=== PATIENT | male | born 1935 | race Caucasian/White ===

== ENCOUNTER 2018-06-03 23:44 | Inpatient (IN) | payer MEDICARE ==
[2018-06-04 00:25] LABS: #Eosinphils 0.2 thou/uL (0.0-0.7); #Lymphocytes 1.9 thou/uL (1.20-3.40); #Monocytes 0.7 thou/uL (0.11-0.59); #Neutrophils 4.3 thou/uL (1.40-6.50); %Basophils 0.6 % (0.0-1.0); %Eosinophils 3.2 % (0.0-10.0); %Lymphocytes 26.6 % (21.0-51.0); %Monocytes 9.2 % (0.0-10.0); %Neutrophils 60.4 % (42.0-75.0); Hemoglobin 13.8 g/dL (14.0-18.0); Mean Corpuscular Hemoglobin 32.6 pg (27.0-31.0); Mean Corpuscular Volume 98.6 fL (78.0-98.0); Platelet Count 186 thou/uL (130-400); RBC Distribution Width 11.8 % (11.5-14.5); Red Blood Cell (RBC) Count 4.25 mill/uL (4.70-6.10); White Blood Cell (WBC) Count 7.1 thou/uL (4.8-10.8)
[2018-06-04 00:28] LABS: INR-International Normal Ratio 2.5
[2018-06-04 00:43] LABS: ALT (SGPT) Less than 7 U/L (8-55); AST (SGOT) 17 U/L (5-34); Albumin 3.9 g/dL (3.4-4.8); Alkaline Phosphatase 59 U/L (40-150); Anion Gap 11 mmol/L (10-20); BUN (Urea Nitrogen) 33 mg/dL (8.4-25.7); Calc. Creatinine Clearance 0 mL/min (70-130); Calcium 9.2 mg/dL (7.8-10.44); Carbon Dioxide 25 mmol/L (23-31); Chloride 107 mmol/L (98-107); Estimated GFR-MDRD 52; Globulin 2.9 g/dL (2.4-3.5); Glucose 111 mg/dL (83-110); Magnesium 2.4 mg/dL (1.6-2.6); Potassium 4.2 mmol/L (3.5-5.1); Protein, Total 6.8 g/dL (5.8-8.1); Sodium 139 mmol/L (136-145)
[2018-06-04 00:46] LABS: CKMB 3.6 ng/mL (0-6.6); Troponin I Less than 0.010 ng/mL (< 0.028)
--- NOTE | 2018-06-04 01:28 | PDOC.FPRHP ---
- History of Present Illness Chief Complaint: Left sided weakness History of Present Illness: Mr Ferreira is an 82yo male with pmh of Parkinson's, A-fib, HTN, HLD, and CHF who presents with acute onset of left sided weakness starting at 7:45pm. Early in the morning around 7am he had similar symptoms where he was not able to rise out of a chair due to mostly left lower leg weakness. He called his son who noted some slurred speech and left sided weakness causing him to tilt to the left. He took him to [facility] to be evaluated in the ED. Per patient and family , all tests came back negative, his weakness and speech improved and he was released home. Later at 7:45pm yesterday he had return of left sided weakness where he was unable to rise from a chair and worsening slurred speech. His daughter drove him to [place] ED. Denies any facial droop, loss of sensation , tingling, numbness, fevers, chill or difficulty swallowing. At baseline he is able to walk around the house without any assistance. ED Course: EKG- normal, CT & CTA showed no acute abnormalities - Allergies/Adverse Reactions Allergies Allergy/AdvReac Type Severity Reaction Status Date / Time No Known Drug Allergies Allergy Verified 06/04/18 03:25 - Home Medications Medication Instructions Recorded Confirmed Type Digoxin [Digox] 125 mcg PO DAILY 12/01/16 06/04/18 History Rasagiline Mesylate [Azilect] 1 mg PO DAILY 12/01/16 06/04/18 History Rivaroxaban [Xarelto] 15 mg PO QPM-WM 12/01/16 06/04/18 History Simvastatin [Zocor] 20 mg PO QPM 12/01/16 06/04/18 History Carbidopa/Levodopa [Sinemet] 25 mg PO TID 06/04/18 06/04/18 History Famotidine [Pepcid] 20 mg PO PRN PRN 06/04/18 06/04/18 History Metoprolol Tartrate [Lopressor] 25 mg PO BID 06/04/18 06/04/18 History Simvastatin [Zocor] 20 mg PO HS 06/04/18 06/04/18 History - History PMHx:CHF, Parkinsons, HLD, HTN, A-fib PSHx: Left eye- macular degeneration FHx: No known hx of Stroke or WI Social: Denies tobacco/alcohol/drug use. Lives with . - Review of Systems General: denies: fever/chills, fatigue Eyes: reports: other (denies SANCHEZ or blurry vision). denies: vision changes ENT: denies: nasal congestion, rhinorrhea Respiratory: denies: cough, shortness of breath Cardiovascular: denies: chest pain, edema Gastrointestinal: denies: nausea, vomiting, diarrhea, abdominal pain Genitourinary: reports: other (no hematuria). denies: dysuria Skin: denies: rashes, lesions Musculoskeletal: denies: pain, swelling Neurological: reports: weakness. denies: numbness - Vital signs BP: 175/110 HR: 72 RR: 16 Tmax: 97.9 Pox: 96% on RA Wt: 79 - Physical Exam Constitutional: NAD, awake, alert and oriented (x3), well developed HEENT: normocephalic and atraumatic, PERRLA, EOMI, TM's clear and intact, grossly normal hearing, MMM, oropharynx clear Neck: trachea midline Heart: no murmurs/rubs/gallops, no edema, other (irregularly irregular rhythm) Lungs: CTAB, no respiratory distress, good air movement Abdomen: soft, non-tender, bowel sounds present Musculoskeletal: normal structure, normal tone, ROM grossly normal Neurological: CN II-XII intact, normal sensation, DTRs 2+, other (Normal heel to engel Strength: 5/5 bilaterally hand dock attendant, arm flexion/extension, hip flexion /extension. 4/5 left plantar flexion/extension. 5/5 right planter flexion/ extension + cogwheel right and left, tremor present Naming and repetition intact ) Skin: no rash/lesions, capillary refill <2 seconds Psychiatric: normal mood and affect, good judgment and insight FMR H&P: Results - Labs Result Diagrams: 06/04/18 00:14 06/04/18 00:14 Lab results: WBC 7.1 thou/uL (4.8-10.8) 06/04/18 00:14 Hgb 13.8 g/dL (14.0-18.0) L 06/04/18 00:14 Hct 41.9 % (42.0-52.0) L 06/04/18 00:14 MCV 98.6 fL (78.0-98.0) H 06/04/18 00:14 Plt Count 186 thou/uL (130-400) 06/04/18 00:14 Neutrophils % 60.4 % (42.0-75.0) 06/04/18 00:14 Sodium 139 mmol/L (136-145) 06/04/18 00:14 Potassium 4.2 mmol/L (3.5-5.1) 06/04/18 00:14 Chloride 107 mmol/L (98-107) 06/04/18 00:14 Carbon Dioxide 25 mmol/L (23-31) 06/04/18 00:14 BUN 33 mg/dL (8.4-25.7) H 06/04/18 00:14 Creatinine 1.31 mg/dL (0.6-1.3) H 06/04/18 00:14 Glucose 111 mg/dL (83-110) H 06/04/18 00:14 Calcium 9.2 mg/dL (7.8-10.44) 06/04/18 00:14 Total Bilirubin 1.0 mg/dL (0.2-1.2) 06/04/18 00:14 AST 17 U/L (5-34) 06/04/18 00:14 ALT Less than 7 U/L (8-55) L 06/04/18 00:14 Alkaline Phosphatase 59 U/L (40-150) 06/04/18 00:14 CK-MB (CK-2) 3.6 ng/mL (0-6.6) 06/04/18 00:14 Serum Total Protein 6.8 g/dL (5.8-8.1) 06/04/18 00:14 Albumin 3.9 g/dL (3.4-4.8) 06/04/18 00:14 - EKG Interpretation EKG: NSR, 68. Normal EKG - Radiology Interpretation CT scan - head Status: report reviewed by me Additional comment: no acute abnormalities FMR H&P: A/P - Problem List (1) Left-sided weakness Current Visit: No Status: Acute Code(s): R53.1 - WEAKNESS (2) RADHA (acute kidney injury) Current Visit: Yes Status: Acute Code(s): N17.9 - ACUTE KIDNEY FAILURE, UNSPECIFIED (3) Atrial fibrillation Current Visit: Yes Status: Chronic Code(s): I48.91 - UNSPECIFIED ATRIAL FIBRILLATION (4) CHF (congestive heart failure) Current Visit: Yes Status: Chronic Code(s): I50.9 - HEART FAILURE, UNSPECIFIED (5) Parkinsonism Current Visit: Yes Status: Chronic Code(s): G20 - PARKINSON'S DISEASE (6) Hypertension Current Visit: Yes Status: Chronic Code(s): I10 - ESSENTIAL (PRIMARY) HYPERTENSION (7) HLD (hyperlipidemia) Current Visit: Yes Status: Chronic Code(s): E78.5 - HYPERLIPIDEMIA, UNSPECIFIED - Plan Mr Ferreira is an 82yo male with pmh of Parkinson's, CHF, HTN, A-fib and HLD presenting with Left sided weakness starting at 7:45pm. 1. Persistent Left sided weakness concern for acute stroke - Will admit to stroke unit for observation - inital CT w/o contrast showed no acute abnormalities - CTA pending, no acute abnormalities, awaiting formal read - Slight but appreciable left lower leg weakness on exam - DDx: TIA vs acute stroke vs UTI vs peripheral nerve problem - Pt presented with similar symptoms in the past with UTI, UA showed trace ketones but no sign of active infection - MRI in AM - Monitor on Tele - [employer] q4h 2. Permissive HTN - Hold Losartan & metoprolol until MRI and until at least 1945 tomorrow, which is 24hrs from presentation of current symptoms 3. A-fib, stable and rate controlled - Continue Xarelto - Hold Metoprolol - Monitor on Tele 4. CHF - Hold metoprolol - Continue digoxin - Consider increasing digoxin dose, currently subtherapeutic 5. Parkinson's - Continue home meds sinemet & Azilect 6. HLD - Continue home Simvastatin 7. RADHA - Cr 1.31 - Continue to monitor PPX: Home Xarelto, no GI ppx indicated at this time. FMR H&P: Upper Level - Plan Date/Time: 06/04/18 [id number] I, Tammie Fuentes MD, PGY-3, have evaluated this patient and agree with findings/ plan as outlined by international logistics coordinator resident. Pertinent changes/additions have been discussed and are reflected above. Attending Addendum - Attending Addendum Date/Time: 06/04/18 [id number] I personally evaluated the patient and discussed the management with Dr. Larkin. I agree with the History, Examination, Assessment and Plan documented above with any addition or exceptions noted below. The patient presents with acute onset of left-sided weakness. He had similar symptoms earlier in the day, was checked in an outside ER and sent home after symptoms had resolved. In the ER CT of the head showed no acute findings. He is admitted for TIA vs. CVA workup. This morning left sided weakness is improved. MRI of the brain shows an acute infarct. Will consult stroke team. Checking carotid doppler and echo. Digoxin is subtherapeutic, will adjust. Allowing for permissive hypertension but otherwise continuing home meds.
[2018-06-04] MEDS ORDERED: Ondansetron ODT 4 MG TAB SL PRN (03:07)
[2018-06-04] MEDS ORDERED: Ondansetron HCl/PF 4 MG/2 ML Vial IVP PRN (03:07)
[2018-06-04 03:14] VITALS: BMI 25.8
[2018-06-04 03:45] LABS: Troponin I Less than 0.010 ng/mL (< 0.028)
[2018-06-04] MEDS ORDERED: Famotidine 20 MG TAB PO PRN (07:00)
[2018-06-04 07:26] LABS: Hemoglobin A1c 5.9 % (4.0-6.0)
[2018-06-04 07:42] LABS: Cardiac Risk 3.4 (Less than 4.5)
[2018-06-04 08:25] LABS: Folate (Folic Acid) 13.7 ng/mL (7.0-31.4)
[2018-06-04] MEDS: Digoxin 0.125 MG TAB PO SCH (08:43)
[2018-06-04] MEDS ORDERED: Aspirin 325 MG TAB PO SCH (09:00)
[2018-06-04] MEDS ORDERED: Carbidopa/Levodopa 25-100 mg Tablet PO SCH (09:00)
--- NOTE | 2018-06-04 11:10 | MRI ---
BRAIN MRI WITHOUT CONTRAST: HISTORY: Transient ischemic attack. Altered mental status. COMPARISON: None. TECHNIQUE: Brain MRI is performed without intravenous Gadolinium administration. Multisequential, multiplanar i maging is performed. FINDINGS: Calvarium has a normal T1 marrow signal intensity. Midline brain parenchymal structures are unremark able. No hemorrhage on the axial gradient echo sequence. Central arterial flow voids are maintained. There is restricted diffusion involving the right residential fee appraiser al capsule, right lentiform nucleus, right johnson radiata. There are T2 and FLAIR hyperintensities associated with the area of restricted diffusion. Additional white matter hyperintensities due to chronic small-vessel ischemic changes are identified. Cortical lyles-white matter differentiation is preserved. No evidence of hydrocephalus. Adequate aeration of the sinuses and mastoid air cells. IMPRESSION: Acute infarct involving the right cerebrum as described above. POS: RASHID
--- NOTE | 2018-06-04 11:44 | MRI ---
MR ANGIOGRAM OF THE [place] OF [place]: HISTORY: Stroke. COMPARISON: None. CORRELATION: CT angiogram of the head 06/04/18. TECHNIQUE: MR angiogram of the [place] was performed in the axial plane utilizing 3D [id number] norm ging. FINDINGS: There is symmetric flow-related signal in the distal cervical and intracranial internal carotid arter ies. Anterior circulation demonstrates appropriate flow-related signal in the A1 and M1 segments. No sign ificant stenosis in the anterior circulation. Posterior circulation demonstrates appropriate flow-related signal in the visualized vertebral and ba silar arteries. Symmetric and appropriate flow-related signal in both T1 segments. IMPRESSION: Unremarkable MR angiogram of the [place]. POS: RASHID
[2018-06-04] MEDS ORDERED: ISOVUE-370 76%-LOCM 1 ML ONE (12:53)
--- NOTE | 2018-06-04 13:42 | PDOC.EVN ---
Event Note - Event Note Event Note: MRI resulted Acute infarct involving the right cerebrum, neurology and stroke team have been consulted. Family and patient have been notified and counseled.
--- NOTE | 2018-06-04 14:37 | CT ---
PRELIMINARY REPORT/[facility]/EMERGENTY AFTER-HOURS PROCEDURE CT Angiography Head With Intravenous Contrast CLINICAL HISTORY: 82 years old, male; Signs and symptoms; Weakness; Patient HX: Patient presents for evaluation of marleny r deficits, arm weakness, leg weakness, left arm weakness, left leg weakness. TECHNIQUE: Axial computed tomographic angiography images of the head with intravenous contrast using CT angiogra phy protocol. MIP reconstructed images were created and reviewed. COMPARISON: No relevant prior studies available. FINDINGS: Right internal carotid artery: No acute findings. Intracranial segment is patent with no significant stenosis. No aneurysm. Right anterior cerebral artery: Unremarkable. No occlusion or significant stenosis. No aneurysm. Right middle cerebral artery: Unremarkable. No occlusion or significant stenosis. No aneurysm. Right posterior cerebral artery: Unremarkable. No occlusion or significant stenosis. No aneurysm. Right vertebral artery: Unremarkable as visualized. Left internal carotid artery: No acute findings. Intracranial segment is patent with no significant s tenosis. No aneurysm. Left anterior cerebral artery: Unremarkable. No occlusion or significant stenosis. No aneurysm. Left middle cerebral artery: Unremarkable. No occlusion or significant stenosis. No aneurysm. Left posterior cerebral artery: Unremarkable. No occlusion or significant stenosis. No aneurysm. Left vertebral artery: Unremarkable as visualized. Basilar artery: Unremarkable. No occlusion or significant stenosis. No aneurysm. Dental: Metallic dental implants create significant artifact, limiting portions of this study. IMPRESSION: Metallic dental implants create significant artifact, limiting portions of this study. No occlusion o r significant stenosis. No aneurysm. Thank you for allowing us to participate in the care of your patient. Dictated and Authenticated by: Marzena Travis MD 06/04/2018 2:25 AM Central Time ([place] & [place]) FINAL REPORT CT [facility] OF [facility]: HISTORY: Stroke. Motor deficit. Arm and leg weakness. COMPARISON: None. TECHNIQUE: CT angiogram of the [place] is performed in the axial plane. Three-dimensional reformatted images are submitted for interpretation. FINDINGS: This report is in agreement with the preliminary report by [facility]. No evidence of vascular occlusion or aneurysm. POS: [facility]
[2018-06-04] MEDS ORDERED: [UNRECOGNIZED DRUG - REMARK] IVPB PRN (15:26)
[2018-06-04] MEDS: Carbidopa/Levodopa 25-100 mg Tablet PO SCH ×2 (15:46→20:24)
[2018-06-04] MEDS: Rivaroxaban 15 MG TAB PO SCH (15:48)
--- NOTE | 2018-06-04 16:51 | ULT ---
CAROTID ULTRASOUND WITH RHODES SCALE AND DOPPLER DUPLEX COLOR FLOW IMAGING SPECTRAL ANALYSIS PERFORMED: DATE: 06/04/18 CLINICAL INDICATION: TIA. FINDINGS: There is scattered mild to moderate atherosclerotic calcification of the carotid arteries. PEAK SYSTOLIC VELOCITY (CM/S): Right CCA 103 Left CCA 102 Right ICA 98 Left ICA 74 There is antegrade flow within the visualized bilateral vertebral arteries. IMPRESSION: 1. No hemodynamically significant stenosis of the right internal carotid artery. 2. No hemodynamically significant stenosis of the left internal carotid artery. POS: RASHID
[2018-06-04] MEDS: Docusate Sodium 100 MG/10 ML UDCUP PO SCH (20:24)
[2018-06-04] MEDS ORDERED: Atorvastatin Calcium 10 MG TAB PO SCH (21:00)
[2018-06-04] MEDS ORDERED: Atorvastatin Calcium 40 MG TAB PO SCH (21:00)
[2018-06-04 21:15] LABS: Hemoglobin 13.1 g/dL (14.0-18.0); Platelet Count 174 thou/uL (130-400)
--- NOTE | 2018-06-04 21:33 | CON ---
DATE OF CONSULTATION: 06/04/2018 CHIEF COMPLAINT: Here for cerebrovascular accident. HISTORY OF PRESENT ILLNESS: Daughter was in the room and she was able to provide some medical history. The patient has had history of Parkinson disease , hypertension, atrial fibrillation, hyperlipidemia, and congestive heart failure. He is 82 years old and he has been under care of Dr. Silver at [facility]. He presents to the hospital with acute onset left-sided weakness yesterday night and he had similar symptoms early hours of yesterday as well and he had slurred speech. He went to [facility] and his workup was negative and his speech improved yesterday morning and he was sent home and again later on he was brought to this hospital. He had been having difficulty with his left leg when he got up to walk. Normally he is able to walk and is independent other than his Parkinson's disease and he looks off to his and has been even monitoring her blood pressure. He has not been checking his blood pressure recently per daughter. MEDICATIONS AT HOME: Include digoxin, rasagiline, Xarelto, simvastatin, carbidopa/levodopa 25/100 three times daily, Pepcid 20 mg as needed, metoprolol 25 mg b.i.d., simvastatin 20 mg at night. CURRENT MEDICATIONS HERE AT THE HOSPITAL: Include the same plus docusate and Pepcid and he was given one dose of aspirin here. FAMILY HISTORY: Positive for stroke in his father. PAST MEDICAL HISTORY: Positive for congestive heart failure, atrial fibrillation, Parkinson disease, hypertension, hyperlipidemia. The patient does not have a fitter armament according to his daughter. PAST SURGICAL HISTORY: He has not had any surgeries according to his daughter. SOCIAL HISTORY: Lives with his . Does not smoke or drink and is fairly independent. REVIEW OF SYSTEMS: Pulmonary: Negative for any shortness of breath or cough. Genitourinary: Negative for any dysuria or hematuria or other issues. Cardiovascular: No chest pain, but positive for irregular heart rate. Dermatologic: Negative for rash or skin lesions. Neurological: Positive for Parkinson disease and new onset left leg weakness. ENT: Negative for any nasal problems, but positive for hearing loss. Ophthalmologic: Negative for any new onset vision changes. LABORATORY DATA AND IMAGING: Current lab workup shows white count 7.1, hemoglobin 13.8, hematocrit 41.9, platelets 186. Sodium 139, potassium 4.2, chloride 107, bicarbonate 25, anion gap 11, BUN 33, creatinine 1.31, and hemoglobin A1c is 5.9, triglycerides 128, cholesterol 164, LDL 87, HDL 48, Vitamin B12 of 487 and folate 13.7. PTT 27, INR 2.5. CT angio of the brain was negative for any occlusion, or aneurysm. He has metallic dental implants creating artifact. He has had an MRI of the brain which again shows an acute infarct in the right cerebrum primarily in the johnson radiata, right external capsule and right lentiform nucleus and also other white matter changes with restricted diffusion in T2 flair images due to chronic microvascular ischemic changes and an MRI angiogram was also completed which showed negative MR angiogram of [place] and carotid Doppler study shows no hemodynamically significant stenosis of right ICA or left ICA. PHYSICAL EXAMINATION: VITAL SIGNS: Blood pressure 193/81, temperature 98.1, pulse 89, respiratory rate 18, O2 sats 95. GENERAL APPEARANCE: Well-built, well-nourished man, who seems to have hypomimia , hypophonia and tremor due to Parkinson disease, mostly action tremor was noted. CHEST: Clear vesicular breathing. CARDIOVASCULAR: S1, S2 heard. He has a systolic murmur in the aortic area as well as the mitral area and no radiation to carotid arteries. Carotids are clear. ABDOMEN: Soft, nontender, no organomegaly noted. NEUROLOGIC: Higher intellectual functions. He seems to be somewhat confused and does not remember the date or day or year. He knows the month is May and he is oriented to place and person and does follow commands. Cranial nerves: Normal extraocular movements. Normal pupillary reaction bilaterally. He has a left facial droop and normal sensation of face bilaterally. Normal hearing to finger rub bilaterally. Normal elevation of palate. Tongue midline. Motor: Bulk normal. Tone was increased in upper and lower extremities due to Parkinson 's and strength is 5/5 in both upper extremities in deltoid, biceps, triceps, wrist extension and flexion, finger extension and flexion, and left lower extremity iliopsoas was 4/5 and quadriceps 4/5, wrist was 5/5 in bilateral hamstrings, ankle dorsiflexion and plantarflexion and deep tendon reflexes were 1+ throughout. Sensory: Normal touch, pinprick, proprioception, vibration and temperature. Cerebellar: Normal finger to nose, heel to engel. Gait not tested. IMPRESSION: The patient is an 82-year-old man with a history of acute stroke resulting in left side, left lower extremity weakness in the setting of Parkinson disease. He already has atrial fibrillation and is on Xarelto. INR is at 2.5. His infarct involves the right external capsule, right lentiform nucleus and right johnson radiata and the absence of any cerebrovascular ischemic disease of the arteries and negative carotid Dopplers. I suspect this is cardioembolic in nature. The patient does not have a fitter armament. His examination shows primarily left lower extremity weakness plus mild encephalopathy. Whether there are other medical issues that are causing encephalopathy needs to be determined. We are waiting on a UA on this patient as well. His diagnosis is consistent with acute cerebrovascular accident, likely cardioembolic etiology. RECOMMENDATIONS: Please continue aspirin with Xarelto and consult Cardiology since patient does not have a fitter armament. He needs echocardiogram and possibly a ELIAN looking into the atrial function. Please call Neurology for further assistance tomorrow. Start physical therapy. MTDD
--- NOTE | 2018-06-05 05:31 | PDOC.FM ---
- Objective Vital Signs & Weight: Vital Signs (12 hours) Temp Pulse Pulse Pulse Resp BP BP 06/05/18 12:00 98.2 F 83 16 06/05/18 08:47 99.3 F 88 12 06/05/18 08:46 88 06/05/18 08:41 88 88 180/91 H 154/98 H 06/05/18 08:05 84 88 171/89 H 184/98 H 06/05/18 08:00 99.3 F 87 12 06/05/18 04:27 98.8 F 77 18 BP Pulse Ox 06/05/18 12:00 118/63 93 L 06/05/18 08:47 94 L 06/05/18 08:46 06/05/18 08:41 06/05/18 08:05 06/05/18 08:00 177/84 H 94 L 06/05/18 04:27 150/86 H 94 L Weight Weight 86.319 kg I&O: 06/04/18 06/05/18 06/06/18 06:59 06:59 06:59 Intake Total 20 Output Total 200 150 Balance -180 -150 Result Diagrams: 06/05/18 11:55 06/05/18 11:48 <Remington Rueda - Last Filed: 06/05/18 14:00> - Subjective Subjective: Mr Ferreira is an 82yo male with pmh of Parkinson's, A-fib, HTN, HLD, and CHF who presents with acute onset of left sided weakness starting at 7:45pm. Found to have had an acute stroke. Today he is much less verbal than he was at admission. Daughter is in the room. He is having urge to urinate but minimal output with very dark urine. Daughter is concerned with his decline in mental status since yesterday morning. - Objective MAR Reviewed: Yes Vital Signs & Weight: Vital Signs (12 hours) Temp Pulse Resp BP BP Pulse Ox 06/05/18 04:27 98.8 F 77 18 150/86 H 94 L 06/05/18 00:17 168/82 H 06/05/18 00:13 98.7 F 85 16 175/91 H 94 L 06/04/18 20:17 97.6 F 78 16 94 L 06/04/18 20:14 97.6 F 78 16 153/72 H 94 L Weight Weight 86.319 kg I&O: 06/03/18 06/04/18 06/05/18 06:59 06:59 06:59 Intake Total 20 Output Total 200 150 Balance -180 -150 Result Diagrams: 06/05/18 13:53 06/05/18 13:53 Radiology Reviewed by me: Yes <Margaret Larkin - Last Filed: 06/06/18 12:37> Phys Exam - Physical Examination Constitutional: NAD HEENT: PERRLA, moist MMs Respiratory: no wheezing, no rales Cardiovascular: RRR, no significant murmur Gastrointestinal: soft, non-tender, positive bowel sounds Musculoskeletal: no edema, pulses present Strength 5/5 hand information systems planner, arm flexion/extension, planter flexion/extension b/ Psychiatric: normal affect Deviation from normal: Obvious decline in mental status since admission <Margaret Larkin - Last Filed: 06/06/18 12:37> Dx/Plan (1) Acute cerebral infarction Code(s): I63.9 - CEREBRAL INFARCTION, UNSPECIFIED Status: Acute (2) Left-sided weakness Code(s): R53.1 - WEAKNESS Status: Acute (3) RADHA (acute kidney injury) Code(s): N17.9 - ACUTE KIDNEY FAILURE, UNSPECIFIED Status: Acute (4) Atrial fibrillation Code(s): I48.91 - UNSPECIFIED ATRIAL FIBRILLATION Status: Chronic (5) CHF (congestive heart failure) Code(s): I50.9 - HEART FAILURE, UNSPECIFIED Status: Chronic (6) Parkinsonism Code(s): G20 - PARKINSON'S DISEASE Status: Chronic (7) Hypertension Code(s): I10 - ESSENTIAL (PRIMARY) HYPERTENSION Status: Chronic (8) HLD (hyperlipidemia) Code(s): E78.5 - HYPERLIPIDEMIA, UNSPECIFIED Status: Chronic (9) Encephalopathy Code(s): G93.40 - ENCEPHALOPATHY, UNSPECIFIED Status: Acute - Plan Plan: Mr Ferreira is an 82yo male with pmh of Parkinson's, CHF, HTN, A-fib and HLD presenting with Left sided weakness starting at 7:45pm. 1. Acute infarct in right Cerebrum - Now inpatient status - Inital CT w/o contrast & CTA showed no acute abnormalities - Slight but appreciable left lower leg weakness on exam, mild encephalopathy - Pt presented with similar symptoms in the past with UTI, UA showed trace ketones but no sign of active infection - MRI: Acute infarct involving right cerebrum (right external capsule, right lentiform nucleus and right johnson radiata) - Neg carotid dopplers - Likely cardioembolic in nature - Monitor on Tele - Neurochecks q4h - Neurology and stroke team on board, appreciate rec's - Cardiology consult, Neuro recommended a ELIAN - Echo 06/04: EF 55-60% with mildly dilated left atrium - PT recommends d/c to rehab unit - Consult case management & rehab screening - Maintenance fluids 125mls/hr 2. HTN - Restart Losartan & metoprolol, now over 24hrs post acute infarct 3. A-fib, stable and rate controlled - Continue Xarelto - Restart Metoprolol - Monitor on Tele - This morning converted back to A-fib with rate in the 150's, now in the 100' s. - INR 2.5 4. CHF - Continue digoxin - Digoxin subtherapeutic - BEERS list criteria for his age recommends not exceeding 0.125 for Digoxin - Restart metoprolol 5. Parkinson's - Continue home meds sinemet & Azilect 6. HLD - Continue Atorvastatin 40 7. RADHA- resolved 8. Encephalopathy - UA was normal on 06/02, unlikely to be due to UTI - likely result of delerium, hx of dementia - CMP to check for electrolyte abnormalities 9. Urinary retention - Ordered bladder scan - Dark urine this morning <1mL - Bladder scan >250mL - Indwelling catheter inserted 06/05 PPX: Home Xarelto, no GI ppx indicated at this time. Code Status: FULL <Margaret Larkin - Last Filed: 06/06/18 12:37> Attending Addendum - Attending Addendum Date/Time: 06/05/18 1400 I personally evaluated the patient and discussed the management with Dr. [] I agree with the History, Examination, Assessment and Plan documented above with any addition or exceptions noted below. <Remington Rueda - Last Filed: 06/05/18 14:00>
[2018-06-05] MEDS: Carbidopa/Levodopa 25-100 mg Tablet PO SCH ×3 (08:46→22:05)
[2018-06-05] MEDS: Digoxin 0.125 MG TAB PO SCH (08:46)
[2018-06-05] MEDS: Docusate Sodium 100 MG/10 ML UDCUP PO SCH ×2 (08:47→22:05)
[2018-06-05 12:04] LABS: #Basophils 0.1 thou/uL (0.0-0.2); #Eosinphils 0.1 thou/uL (0.0-0.7); #Lymphocytes 1.2 thou/uL (1.20-3.40); #Monocytes 0.7 thou/uL (0.11-0.59); #Neutrophils 6.8 thou/uL (1.40-6.50); %Basophils 0.6 % (0.0-1.0); %Eosinophils 1.2 % (0.0-10.0); %Lymphocytes 13.9 % (21.0-51.0); %Monocytes 7.4 % (0.0-10.0); %Neutrophils 76.9 % (42.0-75.0); Hemoglobin 13.5 g/dL (14.0-18.0); Mean Corpuscular Hemoglobin 33.7 pg (27.0-31.0); Mean Corpuscular Volume 96.2 fL (78.0-98.0); Mean Platelet Volume 6.8 fL (7.4-10.4); Platelet Count 175 thou/uL (130-400); RBC Distribution Width 11.7 % (11.5-14.5); Red Blood Cell (RBC) Count 4.02 mill/uL (4.70-6.10); White Blood Cell (WBC) Count 8.8 thou/uL (4.8-10.8)
[2018-06-05 12:38] LABS: ALT (SGPT) Less than 7 U/L (8-55); AST (SGOT) 22 U/L (5-34); Albumin 3.7 g/dL (3.4-4.8); Alkaline Phosphatase 44 U/L (40-150); Anion Gap 12 mmol/L (10-20); BUN (Urea Nitrogen) 24 mg/dL (8.4-25.7); Bilirubin, Total 2.2 mg/dL (0.2-1.2); Calc. Creatinine Clearance 65 mL/min (70-130); Calcium 8.9 mg/dL (7.8-10.44); Carbon Dioxide 21 mmol/L (23-31); Chloride 109 mmol/L (98-107); Estimated GFR-MDRD 67; Globulin 2.6 g/dL (2.4-3.5); Glucose 141 mg/dL (83-110); Protein, Total 6.3 g/dL (5.8-8.1); Sodium 138 mmol/L (136-145)
[2018-06-05] MEDS: Sodium Chloride 0.9% 1,000 ML IV SCH ×2 (13:33→23:05)
[2018-06-05 14:03] LABS: #Eosinphils 0.1 thou/uL (0.0-0.7); #Lymphocytes 1.5 thou/uL (1.20-3.40); #Monocytes 0.7 thou/uL (0.11-0.59); #Neutrophils 6.1 thou/uL (1.40-6.50); %Basophils 0.4 % (0.0-1.0); %Eosinophils 1.7 % (0.0-10.0); %Lymphocytes 18.1 % (21.0-51.0); %Monocytes 8.1 % (0.0-10.0); %Neutrophils 71.7 % (42.0-75.0); Mean Corpuscular HGB CONC 34.6 g/dL (32.0-36.0); Mean Corpuscular Hemoglobin 33.5 pg (27.0-31.0); Mean Corpuscular Volume 96.6 fL (78.0-98.0); Mean Platelet Volume 6.7 fL (7.4-10.4); Platelet Count 186 thou/uL (130-400); RBC Distribution Width 11.6 % (11.5-14.5); Red Blood Cell (RBC) Count 4.19 mill/uL (4.70-6.10); White Blood Cell (WBC) Count 8.6 thou/uL (4.8-10.8)
[2018-06-05 14:08] LABS: INR-International Normal Ratio 1.3; PTT 27.3 SEC (22.9-36.1); Prothrombin Time 16.4 SEC (12.0-14.7)
[2018-06-05 14:16] LABS: ALT (SGPT) Less than 7 U/L (8-55); AST (SGOT) 21 U/L (5-34); Albumin 3.6 g/dL (3.4-4.8); Alkaline Phosphatase 46 U/L (40-150); Anion Gap 12 mmol/L (10-20); BUN (Urea Nitrogen) 24 mg/dL (8.4-25.7); CK (CPK) 192 U/L (30-200); Calc. Creatinine Clearance 61 mL/min (70-130); Calcium 8.8 mg/dL (7.8-10.44); Carbon Dioxide 20 mmol/L (23-31); Chloride 110 mmol/L (98-107); Estimated GFR-MDRD 63; Globulin 2.5 g/dL (2.4-3.5); Glucose 160 mg/dL (83-110); Protein, Total 6.1 g/dL (5.8-8.1); Sodium 138 mmol/L (136-145)
[2018-06-05 14:19] LABS: CKMB 2.6 ng/mL (0-6.6); Troponin I Less than 0.010 ng/mL (< 0.028)
--- NOTE | 2018-06-05 14:39 | PDOC.EVN ---
Event Note - Event Note Event Note: Code alvarez called on patient due to worsening in patient's presentation and concern for change in NIH stroke scale within a period of 2 hours from 4 to 15. Vitals stable Physical exam: Gen: Pt alert and oriented. able to say his name and date of with some dysarthria. Heart: RRR, No MRG. Neuro: CN II-XII intact grossly. 3/5 strength in LLE; 5/5 throughout otherwise. Patient is an 82 yo male with recent history of Acute R. cerebral stroke with change in baseline. Concern for evolution of ischemic stroke vs. hemorrhagic transformation. - stat noncontrast CT ordered which showed no acute intracranial hemorrhage. - discussed case with Dr. Romulo Anthony who recommended continuing current course of risk factor reduction. - continue Xarelto. - continue to monitor.
--- NOTE | 2018-06-05 14:46 | CT ---
CT BRAIN WITHOUT CONTRAST: Comparison: 06-03-18, MRI brain 06-04-18. History: Stroke protocol. Technique: Multiple contiguous axial images were obtained in a CT of the brain without contrast. FINDINGS: There are hypodensities in the right basal ganglion periventricular white matter which correspond to the areas where restricted diffusion is seen on MRI. These are consistent with acute infarctions. No large confluent infarction is seen. There is no evidence of hydrocephalus, intracranial hemorrhage, o r extraaxial fluid collection. The calvarium and overlying soft tissues are unremarkable. The visualized paranasal sinuses and masto id air cells are well aerated. IMPRESSION: Evolving infarctions in the right periventricular white matter and basal ganglia as was seen on MRI b rain. Dr. Larkin notified of the findings at 2:00 p.m. on 06-05-18. POS: [facility]
[2018-06-05] MEDS: Rivaroxaban 15 MG TAB PO SCH (17:04)
[2018-06-05 17:53] LABS: Amphetamine Not Detected (NotDetected); Barbiturates Screen Not Detected (NotDetected); Benzodiazepine Screen Not Detected (NotDetected); Cocaine Metabolite Screen Not Detected (NotDetected); Medtox Control Line Valid? VALID (VALID); Medtox Reader # READER 1; Methadone Not Detected (NotDetected); Methamphetamine Not Detected (NotDetected); Opiate Screen Not Detected (NotDetected); Oxycodone Screen Not Detected (NotDetected); Phencyclidine (PCP) Not Detected (NotDetected); THC/Cannabinoid Screen Not Detected (NotDetected); Tricyclic Screen Not Detected (NotDetected)
--- NOTE | 2018-06-05 21:54 | PRG ---
DATE OF SERVICE: 06/05/2018 SUBJECTIVE: Mr. Ferreira is a pleasant 82-year-old male with history of chronic atrial fibri llation on Xarelto for a long period of time, presented with an acute onset of left-sided weakness. He was slowly recovering and almost came back to his baseline. However, this morning had an episode in which he became weak on his left side as well as had a gaze deviation towards the right side and h emineglect on the left side, which prompted the code green. He ended up having a CT head without con trast which showed no acute intracranial abnormality. Patient currently reports of no significant ch greg since this morning, he continues to feel somewhat weak on his left side. Per , he continues to neglect on his left side and his speech is extremely slurred. PHYSICAL EXAMINATION: VITAL SIGNS: Blood pressure of 177/91, pulse of 89, temperature of 99.6, respirations of 20, O2 sats of 95% on room air. GENERAL: Well-developed, well-nourished male in no apparent distress. RESPIRATORY: Clear to auscultation bilaterally. CARDIOVASCULAR: Regular rate and rhythm. NEUROLOGICAL: Mental status: The patient is awake, alert and oriented x2. Speech and language: Se verely dysarthric speech. Cranial nerves: Pupils are 3 mm and reactive. Visual olmstead are full to threat. He has a right gaze deviation with a left hemineglect. He has a left facial droop. Motor e xam showed normal tone and bulk on both upper and lower extremities. He has 5/5 strength in the left upper extremity and 4+/5 strength in the left lower extremity. LABORATORY DATA: Reviewed, which included CBC, CMP, urine drug screen, which is significant for gluc ose of 160, otherwise unremarkable. IMAGING STUDIES: CT head without contrast done from earlier today was reviewed, which showed area of hypodensity in the right temporal and posterior parietal region. At this time, his symptoms are likely cardioembolic in nature. He had been on Xarelto while he start ed having these symptoms, which suggested that he failed Xarelto therapy. I would recommend switchin g him to either Coumadin or Eliquis for secondary stroke prevention. Continue PT, OT and speech ther apy. Continue supportive care.
[2018-06-05] MEDS: Atorvastatin Calcium 40 MG TAB PO SCH (22:04)
[2018-06-05] MEDS: Metoprolol Tartrate 25 MG TAB PO SCH (22:04)
--- NOTE | 2018-06-06 05:14 | PDOC.FM ---
- Subjective Subjective: Mr Ferreira is an 82yo male with pmh of Parkinson's, CHF, HTN, A-fib and HLD presenting with Left sided weakness starting at 7:45pm. He is stable from yesterday. Patient was not responding during exam but spent time talking with his daughter and answering questions about discharge dispo. - Objective MAR Reviewed: Yes Vital Signs & Weight: Vital Signs (12 hours) Temp Pulse Resp BP Pulse Ox 06/06/18 03:34 98.9 F 79 22 H 143/70 H 94 L 06/05/18 23:43 98.7 F 83 20 117/72 95 06/05/18 20:10 100.2 F H 81 20 142/93 H 92 L 06/05/18 20:00 98.7 F 83 20 92 L Weight Weight 86.319 kg I&O: 06/04/18 06/05/18 06/06/18 06:59 06:59 06:59 Intake Total 20 Output Total 200 150 225 Balance -180 -150 -225 Result Diagrams: 06/05/18 13:53 06/05/18 13:53 <Margaret Larkin - Last Filed: 06/06/18 12:36> - Objective Vital Signs & Weight: Vital Signs (12 hours) Temp Pulse Pulse Pulse Resp BP BP 06/06/18 11:53 76 06/06/18 11:33 96.8 F L 76 16 06/06/18 08:41 71 72 172/90 H 184/89 H 06/06/18 07:34 97.8 F 72 18 06/06/18 03:34 98.9 F 79 22 H BP Pulse Ox 06/06/18 11:53 06/06/18 11:33 182/82 H 95 06/06/18 08:41 06/06/18 07:34 173/84 H 95 06/06/18 03:34 143/70 H 94 L Weight Weight 86.319 kg I&O: 06/05/18 06/06/18 06/07/18 06:59 06:59 06:59 Intake Total 1213 Output Total 150 500 200 Balance -150 713 -200 Result Diagrams: 06/05/18 13:53 06/05/18 13:53 <Willy Mars - Last Filed: 06/06/18 12:47> Phys Exam - Physical Examination Constitutional: NAD HEENT: PERRLA Respiratory: clear to auscultation bilateral Cardiovascular: RRR Gastrointestinal: soft, non-tender, positive bowel sounds Musculoskeletal: no edema, pulses present A&Ox2, Dysarthric speech. Right gaze deviation, left hemineglect. Left facial droop. 5/5 strenght in UE, 3/5 lower left leg Skin: cap refill <2 seconds <Margaret Larkin - Last Filed: 06/06/18 12:36> Dx/Plan (1) Acute cerebral infarction Code(s): I63.9 - CEREBRAL INFARCTION, UNSPECIFIED Status: Acute (2) Left-sided weakness Code(s): R53.1 - WEAKNESS Status: Acute (3) RADHA (acute kidney injury) Code(s): N17.9 - ACUTE KIDNEY FAILURE, UNSPECIFIED Status: Acute (4) Atrial fibrillation Code(s): I48.91 - UNSPECIFIED ATRIAL FIBRILLATION Status: Chronic (5) CHF (congestive heart failure) Code(s): I50.9 - HEART FAILURE, UNSPECIFIED Status: Chronic (6) Parkinsonism Code(s): G20 - PARKINSON'S DISEASE Status: Chronic (7) Hypertension Code(s): I10 - ESSENTIAL (PRIMARY) HYPERTENSION Status: Chronic (8) HLD (hyperlipidemia) Code(s): E78.5 - HYPERLIPIDEMIA, UNSPECIFIED Status: Chronic (9) Encephalopathy Code(s): G93.40 - ENCEPHALOPATHY, UNSPECIFIED Status: Acute - Plan Plan: Mr Ferreira is an 82yo male with pmh of Parkinson's, CHF, HTN, A-fib and HLD presenting with Left sided weakness starting at 7:45pm. 1. Acute infarct in right Cerebrum - Now inpatient status - Inital CT w/o contrast & CTA showed no acute abnormalities - Slight but appreciable left lower leg weakness on exam, mild encephalopathy - Pt presented with similar symptoms in the past with UTI, UA showed trace ketones but no sign of active infection - MRI: Acute infarct involving right cerebrum (right external capsule, right lentiform nucleus and right johnson radiata) - Neg carotid dopplers - Likely cardioembolic in nature - Monitor on Tele - Neurochecks q4h - Neurology and stroke team on board, appreciate rec's - Echo 06/04: EF 55-60% with mildly dilated left atrium - PT/OT recommends d/c to rehab unit, cont PT/OT - Consult case management & rehab screening - Maintenance fluids 125mls/hr - Speech therapy rec [place] thick/Mechanical soft diet - Bayron Costa was called yesterday for worsening patient presentation and change in NIH from 4 to 15 within a few hours, CT showed evolving infarction. - Xarelto changed to Eliquis, stroke was likely embolic in nature and therefore patient failed therapy with Xarelto 2. HTN - Restart Losartan & metoprolol, now over 24hrs post acute infarct 3. A-fib, stable and rate controlled - Continue Metoprolol & Digoxin - Monitor on Tele - 06/05 converted back to A-fib with rate in the 150's, now in the 100's. - Xarelto stopped 06/05 failed therapy, Started Eliquis 06/06 - Adjusted Eliquis dosing 4. CHF - Continue digoxin for rate control - Digoxin subtherapeutic - BEERS list criteria for his age recommends not exceeding 0.125 for Digoxin - Cont Metoprolol 5. Parkinson's - Continue home meds sinemet & Azilect 6. HLD - Continue Atorvastatin 40 7. RADHA- resolved 8. Encephalopathy - UA was normal on 06/02, unlikely to be due to UTI - likely result of delerium, hx of dementia - CMP to check for electrolyte abnormalities 9. Urinary retention - Bladder scan 06/05 >250mL - Indwelling catheter inserted 06/05 <Margaret Larkin - Last Filed: 06/06/18 12:36> Attending Addendum - Attending Addendum Date/Time: 06/06/18 2236 I personally evaluated the patient and discussed the management with Dr. Lakrin and team. I agree with and repeated the History, Examination, Assessment and Plan documented above with any addition or exceptions noted below. Pt following commands and interacting with me this morning. Agree with exam, although unsure if he has hemineglect, techically. Transitioned to appropriate dose of apixaban. Risk factor management. Neuro, PT, SP following. <Willy Mars - Last Filed: 06/06/18 12:47>
[2018-06-06] MEDS: Sodium Chloride 0.9% 1,000 ML IV SCH ×3 (05:56→21:51)
[2018-06-06] MEDS ORDERED: Apixaban 2.5 MG TAB PO SCH ×3 (08:00→12:00)
[2018-06-06] MEDS: Docusate Sodium 100 MG/10 ML UDCUP PO SCH ×2 (11:39→21:52)
[2018-06-06] MEDS: Carbidopa/Levodopa 25-100 mg Tablet PO SCH ×3 (11:50→21:52)
[2018-06-06] MEDS: Digoxin 0.125 MG TAB PO SCH (11:53)
[2018-06-06] MEDS: Metoprolol Tartrate 25 MG TAB PO SCH ×2 (11:55→21:52)
--- NOTE | 2018-06-06 12:51 | EKG ---
Test Reason : Blood Pressure : / mmHG Vent. Rate : 087 BPM Atrial Rate : 394 BPM P-R Int : 000 ms QRS Dur : 082 ms QT Int : 350 ms P-R-T Axes : 000 -19 005 degrees QTc Int : 421 ms Atrial tachycardia with variable A-V block with premature ventricular or aberrantly conducted complex es Nonspecific ST abnormality Abnormal ECG Confirmed by PILAR LEE ([id number]) on 06/06/2018 12:51:03 PM Referred By: DANIKA Confirmed By:PILAR LEE
--- NOTE | 2018-06-06 14:39 | PQF ---
CLINICAL DOCUMENTATION IMPROVEMENT CLARIFICATION FORM: ICD-10 Updated PLEASE DO AN ADDENDUM TO THE PROGRESS NOTE WITH ANY DOCUMENTATION UPDATES OR ADDITIONS AND CARRY THROUGH TO DC SUMMARY. THANK YOU. DATE: 06/06/18 ATTN: Dr. Larkin/ Attending Dr. Mars Please exercise your independent, professional judgment in responding to the clarification form. Clinical indicators are provided on the bottom of this form for your review Please check appropriate box(s): HEART FAILURE: A. TYPE: [ ] Systolic / HFrEF [ x ] Diastolic / HFpEF [ ] Combined Systolic / Diastolic [ ] Other diagnosis [ ] Unable to determine In addition, please specify: Present on Admission (POA): [ x ] Yes [ ] No [ ] Unable to determine For continuity of documentation, please document condition throughout progress notes and discharge summary. Thank You. CLINICAL INDICATORS - SIGNS / SYMPTOMS / LABS H&P: CHF. CHRONIC PN 06/04: ECHO 06/04: EF 55-60% W/ MILDLY DILATED LEFT ATRIUM RISKS: H&P 06/04: PMH PARKINSON'S, A-FIB, HTN, & CHF. TREATMENT: CPOE 06/05: LOPRESSOR 25 MG PO BID Thank you, Amy (This form is maintained as a part of the permanent medical record) 2014 [employer]. All Rights Reserved Amy Jasmine RN, BSN [email or web address] Office: [phone] Diastolic dysfunction, present on admission. Jessica Mars MD. [facility]
[2018-06-06 21:19] LABS: Hemoglobin 12.8 g/dL (14.0-18.0); Platelet Count 179 thou/uL (130-400)
[2018-06-06] MEDS: Apixaban 5 MG TAB PO SCH (21:52)
[2018-06-06] MEDS: Atorvastatin Calcium 40 MG TAB PO SCH (21:52)
[2018-06-07 02:33] LABS: Bacteria/HPF None Seen HPF (None Seen); Crystals/HPF None Seen HPF (Negative); Hyaline Casts/LPF NONE SEEN LPF (0-3 Hyaline); Renal Epithelial None Seen HPF (0-3); Squamous Epithelial 0-3 HPF (0-3); Transitional Epithelial NONE SEEN HPF (0-3); WBC/HPF 0-3 HPF (0-3); Yeast-All Forms None Seen HPF (None Seen)
--- NOTE | 2018-06-07 05:16 | PDOC.FM ---
- Subjective Subjective: Mr Ferreria is an 82yo male with pmh of Parkinson's, CHF, HTN, A-fib and HLD presenting with Left sided weakness starting at 7:45pm. He is stable from yesterday. More interactive today. No new concerns. Unable to obtain ROS due to patient not able to verbally communicate. - Objective MAR Reviewed: Yes Vital Signs & Weight: Vital Signs (12 hours) Temp Pulse Resp BP Pulse Ox 06/07/18 04:21 98 F 69 20 172/79 H 96 06/07/18 00:32 98.2 F 69 20 146/77 H 94 L 06/06/18 20:00 98.2 F 69 20 95 06/06/18 19:35 97.1 F L 86 20 149/82 H 95 Weight Weight 86.319 kg I&O: 06/05/18 06/06/18 06/07/18 06:59 06:59 06:59 Intake Total 1213 Output Total 150 500 200 Balance -150 713 -200 Result Diagrams: 06/06/18 21:01 06/06/18 21:01 <Margaret Larkin - Last Filed: 06/07/18 09:18> - Objective Vital Signs & Weight: Vital Signs (12 hours) Temp Pulse Pulse Resp BP BP Pulse Ox 06/07/18 11:38 96.6 F L 67 24 H 128/67 98 06/07/18 09:17 75 06/07/18 08:59 98.4 F 75 20 99 06/07/18 08:37 79 170/86 H 06/07/18 07:46 98.4 F 75 20 195/92 H 99 06/07/18 04:21 98 F 69 20 172/79 H 96 06/07/18 00:32 98.2 F 69 20 146/77 H 94 L Weight Weight 86.319 kg I&O: 06/06/18 06/07/18 06/08/18 06:59 06:59 06:59 Intake Total 1213 1300 Output Total 500 200 750 Balance 713 -200 550 Result Diagrams: 06/06/18 21:01 06/06/18 21:01 <Willy Mars - Last Filed: 06/07/18 12:12> Phys Exam - Physical Examination Constitutional: NAD HEENT: oral pharynx no lesions Respiratory: clear to auscultation bilateral Cardiovascular: RRR Gastrointestinal: soft, positive bowel sounds Musculoskeletal: no edema, pulses present Deviation from normal: A&O to person and place Skin: cap refill <2 seconds <Margaret Larkin - Last Filed: 06/07/18 09:18> Dx/Plan (1) Acute cerebral infarction Code(s): I63.9 - CEREBRAL INFARCTION, UNSPECIFIED Status: Acute (2) Left-sided weakness Code(s): R53.1 - WEAKNESS Status: Acute (3) RADHA (acute kidney injury) Code(s): N17.9 - ACUTE KIDNEY FAILURE, UNSPECIFIED Status: Acute (4) Atrial fibrillation Code(s): I48.91 - UNSPECIFIED ATRIAL FIBRILLATION Status: Chronic (5) CHF (congestive heart failure) Code(s): I50.9 - HEART FAILURE, UNSPECIFIED Status: Chronic (6) Parkinsonism Code(s): G20 - PARKINSON'S DISEASE Status: Chronic (7) Hypertension Code(s): I10 - ESSENTIAL (PRIMARY) HYPERTENSION Status: Chronic (8) HLD (hyperlipidemia) Code(s): E78.5 - HYPERLIPIDEMIA, UNSPECIFIED Status: Chronic (9) Encephalopathy Code(s): G93.40 - ENCEPHALOPATHY, UNSPECIFIED Status: Acute - Plan Plan: Mr Ferreira is an 82yo male with pmh of Parkinson's, CHF, HTN, A-fib and HLD presenting with Left sided weakness starting at 7:45pm. 1. Acute infarct in right Cerebrum - Inital CT w/o contrast & CTA showed no acute abnormalities - Slight but appreciable left lower leg weakness on exam, mild encephalopathy - Pt presented with similar symptoms in the past with UTI, UA showed trace ketones but no sign of active infection - MRI: Acute infarct involving right cerebrum (right external capsule, right lentiform nucleus and right johnson radiata) - Neg carotid dopplers - Likely cardioembolic in nature - Monitor on Tele - Neurochecks q4h - Neurology and stroke team on board, appreciate rec's - Echo 06/04: EF 55-60% with mildly dilated left atrium - PT/OT recommends d/c to rehab unit, cont PT/OT - CM following for rehab placement - Maintenance fluids 125mls/hr - Speech therapy rec [place] thick/Mechanical soft diet - Code Igor was called 06/05 for worsening patient presentation and change in NIH from 4 to 15 within a few hours, CT showed evolving infarction. - Xarelto changed to Eliquis, stroke was likely embolic in nature and therefore patient failed therapy with Xarelto. Dose was adjusted 06/06 - Risk Factor management, consider restarting Losartan for better BP control, find out from family if this was one of his home meds 2. HTN - Cont metoprolol, now over 24hrs post acute infarct 3. A-fib, stable and rate controlled - Continue Metoprolol & Digoxin - Monitor on Tele - 06/05 converted back to A-fib with rate in the 150's, now in the 100's. - Xarelto stopped 06/05 failed therapy, Started Eliquis 06/06 - Adjusted Eliquis dosing 06/06 4. CHF - Continue digoxin for rate control - Digoxin subtherapeutic - BEERS list criteria for his age recommends not exceeding 0.125 for Digoxin - Cont Metoprolol 5. Parkinson's - Continue home meds sinemet & Azilect 6. HLD - Continue Atorvastatin 40 7. RADHA- resolved 8. Encephalopathy - UA was normal on 06/02, unlikely to be due to UTI - likely result of delerium, hx of dementia - CMP to check for electrolyte abnormalities 9. Urinary retention - Bladder scan 06/05 >250mL - Indwelling catheter inserted 06/05 - UA + for 11-20 RBCs, per nursing he has been tugging at catheter with pink tinged urine afterwards Code Status: FULL DVT ppx: SCDs, on Eliquis GI PPx: none Dispo: SNF once medically stable. CM has sent request to [facility] <Margaret Larkin - Last Filed: 06/07/18 09:18> Attending Addendum - Attending Addendum Date/Time: 06/07/18 1211 I personally evaluated the patient and discussed the management with Dr. Larkin and team. I agree with and repeated the History, Examination, Assessment and Plan documented above with any addition or exceptions noted below. Pt improved today, but still talks little. Neuro exam unchanged. Continue RF management. PT/ST/placement. Will need workup or f/u for elevated bilirubin. Discussed with family at bedside. <Willy Mars - Last Filed: 06/07/18 12:12>
[2018-06-07] MEDS: Sodium Chloride 0.9% 1,000 ML IV SCH ×3 (06:29→22:11)
[2018-06-07] MEDS: Digoxin 0.125 MG TAB PO SCH (09:17)
[2018-06-07] MEDS: Carbidopa/Levodopa 25-100 mg Tablet PO SCH ×3 (09:17→22:10)
[2018-06-07] MEDS: Apixaban 5 MG TAB PO SCH ×2 (09:17→22:10)
[2018-06-07] MEDS: Metoprolol Tartrate 25 MG TAB PO SCH ×2 (09:18→22:11)
[2018-06-07] MEDS: Docusate Sodium 100 MG/10 ML UDCUP PO SCH ×2 (09:19→22:10)
[2018-06-07] MEDS ORDERED: Acetaminophen 500 MG TAB PO PRN (12:56)
[2018-06-07 13:42] LABS: Bilirubin, Direct 0.6 mg/dL (0.1-0.3)
[2018-06-07] MEDS: Atorvastatin Calcium 40 MG TAB PO SCH (22:10)
--- NOTE | 2018-06-08 04:59 | PDOC.FM ---
- Subjective Subjective: Mr Ferreira is an 82yo male with pmh of Parkinson's, CHF, HTN, A-fib and HLD presenting with Left sided weakness starting at 7:45pm. He is stable from yesterday. More interactive today. Denies pain, discomfort, SANCHEZ or abdominal pain. Endorses being depressed and would like to talk to someone about it but would not like pharmacologic management at this time. I placed a ventilator communication chart in his room that he agreed he would like to try using and nursing is aware. - Objective MAR Reviewed: Yes Vital Signs & Weight: Vital Signs (12 hours) Temp Pulse Resp BP Pulse Ox 06/08/18 00:10 98.4 F 65 20 142/76 H 96 06/07/18 20:07 97.2 F L 86 20 180/82 H 96 06/07/18 20:00 98.4 F 65 20 96 Weight Weight 86.319 kg I&O: 06/06/18 06/07/18 06/08/18 06:59 06:59 06:59 Intake Total 1213 1300 Output Total 413 141 3647 Balance 713 -200 -350 Result Diagrams: 06/06/18 21:01 06/06/18 21:01 <Margaret Larkin - Last Filed: 06/08/18 10:38> - Objective Vital Signs & Weight: Vital Signs (12 hours) Temp Pulse Resp BP Pulse Ox 06/08/18 12:00 98.4 F 74 16 183/90 H 96 06/08/18 11:39 69 06/08/18 11:37 69 06/08/18 07:55 98.7 F 69 20 186/94 H 95 06/08/18 03:55 98.1 F 63 20 150/75 H 96 Weight Weight 86.319 kg I&O: 06/07/18 06/08/18 06/09/18 06:59 06:59 06:59 Intake Total 1300 Output Total 200 2550 Balance -200 -1250 Result Diagrams: 06/06/18 21:01 06/06/18 21:01 <Willy Mars - Last Filed: 06/08/18 13:03> Phys Exam - Physical Examination Constitutional: NAD HEENT: sclera anicteric Respiratory: clear to auscultation bilateral Cardiovascular: RRR Gastrointestinal: soft, non-tender, positive bowel sounds No right upper quadrant tenderness Musculoskeletal: no edema, pulses present A&Ox2, Dysarthric speech. Right gaze deviation, left facial droop Left UE & LE weakness Deviation from normal: A&Ox2 unable to access to time Skin: cap refill <2 seconds <Margaret Larkin - Last Filed: 06/08/18 10:38> Dx/Plan (1) Acute cerebral infarction Code(s): I63.9 - CEREBRAL INFARCTION, UNSPECIFIED Status: Acute (2) Left-sided weakness Code(s): R53.1 - WEAKNESS Status: Acute (3) RADHA (acute kidney injury) Code(s): N17.9 - ACUTE KIDNEY FAILURE, UNSPECIFIED Status: Acute (4) Atrial fibrillation Code(s): I48.91 - UNSPECIFIED ATRIAL FIBRILLATION Status: Chronic (5) Hyperbilirubinemia Code(s): E80.6 - OTHER DISORDERS OF BILIRUBIN METABOLISM Status: Acute (6) CHF (congestive heart failure) Code(s): I50.9 - HEART FAILURE, UNSPECIFIED Status: Chronic (7) Parkinsonism Code(s): G20 - PARKINSON'S DISEASE Status: Chronic (8) Hypertension Code(s): I10 - ESSENTIAL (PRIMARY) HYPERTENSION Status: Chronic (9) HLD (hyperlipidemia) Code(s): E78.5 - HYPERLIPIDEMIA, UNSPECIFIED Status: Chronic (10) Encephalopathy Code(s): G93.40 - ENCEPHALOPATHY, UNSPECIFIED Status: Acute - Plan Plan: Mr Ferreira is an 82yo male with pmh of Parkinson's, CHF, HTN, A-fib and HLD presenting with Left sided weakness starting at 7:45pm. 1. Acute infarct in right Cerebrum - Inital CT w/o contrast & CTA showed no acute abnormalities - Slight but appreciable left lower leg weakness on exam, mild encephalopathy - Pt presented with similar symptoms in the past with UTI, UA showed trace ketones but no sign of active infection - MRI: Acute infarct involving right cerebrum (right external capsule, right lentiform nucleus and right johnson radiata) - Neg carotid dopplers - Likely cardioembolic in nature - Monitor on Tele - Neurochecks q4h - Neurology and stroke team on board, appreciate rec's - Echo 06/04: EF 55-60% with mildly dilated left atrium - PT/OT recommends d/c to rehab unit, cont PT/OT - CM following for rehab placement - Maintenance fluids 125mls/hr - Speech therapy rec [place] thick/Mechanical soft diet - Code Igor was called 06/05 for worsening patient presentation and change in NIH from 4 to 15 within a few hours, CT showed evolving infarction. - Xarelto changed to Eliquis, stroke was likely embolic in nature and therefore patient failed therapy with Xarelto. Dose was adjusted 06/06 - Risk Factor management - Continue Amlodipine 10mg (started 06/07) 2. HTN - Cont metoprolol, now over 24hrs post acute infarct - Started Amlodipine 10mg 06/07 - Start Lisinopril 20mg 3. A-fib, stable and rate controlled - Continue Metoprolol & Digoxin - Monitor on Tele - 06/05 converted back to A-fib with rate in the 150's, now in the 100's. - Xarelto stopped 06/05 failed therapy, Started Eliquis 06/06 - Adjusted Eliquis dosing 06/06 4. 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 Depression - Spoke with him about options for management - Would like to talk to a psychologist - Consulted spiritual care 6. CHF - Continue digoxin for rate control - Digoxin subtherapeutic - BEERS list criteria for his age recommends not exceeding 0.125 for Digoxin - Cont Metoprolol 7. Parkinson's - Continue home meds sinemet & Azilect 8. HLD - Continue Atorvastatin 40 9. RADHA- resolved 10. Encephalopathy - UA was normal on 06/02, unlikely to be due to UTI - likely result of delerium, hx of dementia - No electrolyte disturbances 11. Urinary retention - Bladder scan 06/05 >250mL - Indwelling catheter inserted 06/05 - UA + for 11-20 RBCs, per nursing he has been tugging at catheter with pink tinged urine afterwards - Trial catheter removal today Code Status: FULL DVT ppx: SCDs, on Eliquis GI PPx: none Dispo: SNF once medically stable. CM has sent request to [facility] <Margaret Larkin - Last Filed: 06/08/18 10:38> Attending Addendum - Attending Addendum Date/Time: 06/08/18 1302 I personally evaluated the patient and discussed the management with Dr. Larkin and team. I agree with and repeated the History, Examination, Assessment and Plan documented above with any addition or exceptions noted below. Pt doing better this AM. Talking some, but somewhat of an expressive aphasia vs dysarthria. Increasd BP control. Continue RF management and PT. D/c Altagracia for a repeat trial without. Placement pending. <Willy Mars - Last Filed: 06/08/18 13:03>
[2018-06-08] MEDS: Sodium Chloride 0.9% 1,000 ML IV SCH ×2 (07:53→15:05)
--- NOTE | 2018-06-08 09:03 | ULT ---
GALLBLADDER ULTRASOUND: HISTORY: Conjugated hyperbilirubinemia. COMPARISON: None. TECHNIQUE: Utilizing a multihertz transducer, sonographic imaging of the right upper quadrant was performed in t he longitudinal and transverse plane. FINDINGS: Pancreas is obscured by bowel gas. Hepatic parenchyma has a heterogeneous echotexture. No hepatic m asses or intrahepatic biliary dilatation. The contour of the hepatic margin is maintained. Right he patic lobe measures 15.8 cm. Main portal vein is patent. Appropriate directional flow. Common bile duct diameter is 0.4 cm. Limited evaluation of the right kidney. There appear to be 2 separate cortical cysts measuring 1.7 x 1.3 x 1.6 cm and 1.7 x 1.5 x 1.4 cm respectively. No hydronephrosis. The right kidney measures 5.1 x 5.2 x 10.7 cm. No evidence of hydronephrosis. No sonographic evidence of cholelithiasis , gallbladder wall thickening, and or pericholecystic fluid . Negative Eagle's sign. IMPRESSION: 1. No evidence of hydronephrosis. 2. Two right renal cysts are suspected. 3. No sonographic evidence of cholelithiasis or cholecystitis. POS: [facility]
[2018-06-08] MEDS: Carbidopa/Levodopa 25-100 mg Tablet PO SCH ×3 (11:37→20:24)
[2018-06-08] MEDS: Metoprolol Tartrate 25 MG TAB PO SCH ×2 (11:37→20:25)
[2018-06-08] MEDS: Digoxin 0.125 MG TAB PO SCH (11:37)
[2018-06-08] MEDS: Docusate Sodium 100 MG/10 ML UDCUP PO SCH ×2 (11:38→20:25)
[2018-06-08] MEDS: Apixaban 5 MG TAB PO SCH ×2 (11:38→20:24)
[2018-06-08] MEDS: Amlodipine 10 MG TAB PO SCH (11:39)
[2018-06-08] MEDS ORDERED: Labetalol HCl 100 MG/20 ML VIAL SLOW IVP SCH (18:30)
[2018-06-08] MEDS: Atorvastatin Calcium 40 MG TAB PO SCH (20:25)
[2018-06-08 21:35] LABS: Hemoglobin 12.6 g/dL (14.0-18.0); Platelet Count 192 thou/uL (130-400)
[2018-06-09] MEDS: Sodium Chloride 0.9% 1,000 ML IV SCH (00:30)
--- NOTE | 2018-06-09 05:03 | PDOC.FM ---
- Subjective Subjective: Mr Ferreira is an 82yo male with pmh of Parkinson's, CHF, HTN, A-fib and HLD presenting with Left sided weakness starting at 7:45pm. He is stable from yesterday. More interactive today. Denies pain, discomfort, SANCHEZ or abdominal pain. - Objective MAR Reviewed: Yes Vital Signs & Weight: Vital Signs (12 hours) Temp Pulse Resp BP Pulse Ox 06/09/18 04:00 97.9 F 78 18 180/86 H 96 06/09/18 00:00 97.4 F L 76 18 110/61 95 06/08/18 20:20 97.4 F L 76 18 06/08/18 20:00 97.9 F 66 18 121/61 93 L 06/08/18 18:29 72 Weight Weight 86.183 kg I&O: 06/07/18 06/08/18 06/09/18 06:59 06:59 06:59 Intake Total 1300 Output Total 200 2550 1500 Balance -200 -1250 -1500 Result Diagrams: 06/08/18 21:29 06/08/18 21:29 <Margaret Larkin - Last Filed: 06/09/18 11:36> - Objective Vital Signs & Weight: Vital Signs (12 hours) Temp Pulse Pulse Pulse Resp BP BP 06/09/18 15:35 69 70 142/74 H 140/65 06/09/18 15:33 98.6 F 83 14 06/09/18 11:30 98.5 F 75 14 06/09/18 11:16 66 06/09/18 08:05 98.5 F 75 14 06/09/18 07:41 98.4 F 66 14 BP Pulse Ox 06/09/18 15:35 06/09/18 15:33 131/75 93 L 06/09/18 11:30 185/89 H 96 06/09/18 11:16 06/09/18 08:05 97 06/09/18 07:41 179/80 H 97 Weight Weight 86.183 kg I&O: 06/08/18 06/09/18 06/10/18 06:59 06:59 06:59 Intake Total 1300 1725 Output Total 2550 1500 Balance -1250 225 Result Diagrams: 06/08/18 21:29 06/08/18 21:29 <Remington Rueda - Last Filed: 06/09/18 17:05> Phys Exam - Physical Examination Constitutional: NAD Respiratory: no wheezing, clear to auscultation bilateral Cardiovascular: RRR Gastrointestinal: soft, non-tender, positive bowel sounds Musculoskeletal: no edema, pulses present Psychiatric: normal affect Skin: cap refill <2 seconds <Tito Larkinyla - Last Filed: 06/09/18 11:36> Dx/Plan (1) Acute cerebral infarction Code(s): I63.9 - CEREBRAL INFARCTION, UNSPECIFIED Status: Acute (2) Left-sided weakness Code(s): R53.1 - WEAKNESS Status: Acute (3) RADHA (acute kidney injury) Code(s): N17.9 - ACUTE KIDNEY FAILURE, UNSPECIFIED Status: Acute (4) Atrial fibrillation Code(s): I48.91 - UNSPECIFIED ATRIAL FIBRILLATION Status: Chronic (5) Hyperbilirubinemia Code(s): E80.6 - OTHER DISORDERS OF BILIRUBIN METABOLISM Status: Acute (6) CHF (congestive heart failure) Code(s): I50.9 - HEART FAILURE, UNSPECIFIED Status: Chronic (7) Parkinsonism Code(s): G20 - PARKINSON'S DISEASE Status: Chronic (8) Hypertension Code(s): I10 - ESSENTIAL (PRIMARY) HYPERTENSION Status: Chronic (9) HLD (hyperlipidemia) Code(s): E78.5 - HYPERLIPIDEMIA, UNSPECIFIED Status: Chronic (10) Encephalopathy Code(s): G93.40 - ENCEPHALOPATHY, UNSPECIFIED Status: Acute - Plan Plan: Mr Ferreira is an 82yo male with pmh of Parkinson's, CHF, HTN, A-fib and HLD presenting with Left sided weakness starting at 7:45pm. 1. Acute infarct in right Cerebrum - Inital CT w/o contrast & CTA showed no acute abnormalities - Slight but appreciable left lower leg weakness on exam, mild encephalopathy - Pt presented with similar symptoms in the past with UTI, UA showed trace ketones but no sign of active infection - MRI: Acute infarct involving right cerebrum (right external capsule, right lentiform nucleus and right johnson radiata) - Neg carotid dopplers - Likely cardioembolic in nature - Monitor on Tele, Neurochecks q4h - Neurology and stroke team on board, appreciate rec's - Echo 06/04: EF 55-60% with mildly dilated left atrium - PT/OT recommends d/c to rehab unit, cont PT/OT - CM following for rehab placement - Maintenance fluids 125mls/hr - Speech therapy rec [place] thick/Mechanical soft diet - Bayron Costa was called 06/05 for worsening patient presentation and change in NIH from 4 to 15 within a few hours, CT showed evolving infarction. - Xarelto changed to Eliquis, stroke was likely embolic in nature and therefore patient failed therapy with Xarelto. Dose was adjusted 06/06 - Risk Factor management - Continue Amlodipine 10mg (started 06/07) - Continue Lisinopril 20mg for BP control (06/08) 2. HTN - Cont metoprolol, now over 24hrs post acute infarct - Continue Amlodipine 10mg (06/07) & Lisinopril 20mg (06/08) 3. Urinary retention - Bladder scan 06/05 >250mL - Indwelling catheter inserted 06/05 - UA + for 11-20 RBCs, per nursing he has been tugging at catheter with pink tinged urine afterwards - Trial catheter removal 06/08, no post void residuals overnight 4. A-fib, stable and rate controlled - Continue Metoprolol & Digoxin - Monitor on Tele - 06/05 converted back to A-fib with rate in the 150's, now in the 100's. - Xarelto stopped 06/05 failed therapy, Started Eliquis 06/06 5. 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 Depression - Spoke with him about options for management - Consulted spiritual care - Recommended SSRI 7. CHF - Continue digoxin for rate control - Digoxin subtherapeutic - BEERS list criteria for his age recommends not exceeding 0.125 for Digoxin - Cont Metoprolol 8. Parkinson's - Continue home meds sinemet & Azilect 9. HLD - Continue Atorvastatin 40 10. RADHA- resolved 11. Encephalopathy - resolved - UA was normal on 06/02, unlikely to be due to UTI - No electrolyte disturbances Code Status: FULL DVT ppx: SCDs, on Eliquis GI PPx: none Dispo: SNF once medically stable. has sent request to [facility] <Margaret Larkin - Last Filed: 06/09/18 11:36> Attending Addendum - Attending Addendum Date/Time: 06/09/18 1626 I personally evaluated the patient and discussed the management with Dr. Larkin I agree with the History, Examination, Assessment and Plan documented above with any addition or exceptions noted below.Patient Stable BP well controlled heart rate controlled . Consider starting SSRI should be ready for Rehab as placement becomes available. Patient voiding well at present. Patient and family updated to care plan. <Remington Rueda - Last Filed: 06/09/18 17:05>
[2018-06-09] MEDS ORDERED: Lisinopril 20 MG TAB PO SCH (09:00)
[2018-06-09] MEDS: Apixaban 5 MG TAB PO SCH (11:16)
[2018-06-09] MEDS: Carbidopa/Levodopa 25-100 mg Tablet PO SCH ×2 (11:16→17:13)
[2018-06-09] MEDS: Metoprolol Tartrate 25 MG TAB PO SCH (11:16)
[2018-06-09] MEDS: Digoxin 0.125 MG TAB PO SCH (11:16)
[2018-06-09] MEDS: Docusate Sodium 100 MG/10 ML UDCUP PO SCH (11:16)
[2018-06-09] MEDS: Amlodipine 10 MG TAB PO SCH (11:16)
[2018-06-09 15:33] VITALS: TEMP 98.6
[2018-06-09 16:13] VITALS: BP 142/74
== END 2018-06-09 17:38 | DRG 64 ==
LOC: ERS 23:44 → INTOOBSV 06-04 00:58 → 2SE 06-04 00:58 → OBSVTOIN 06-04 00:58
PROVIDERS: ADMIT Family Medicine; ATTEND Family Medicine
DX: I63.40 Cerebral infarction due to embolism of unspecified cerebral artery (principal); G93.49 Other encephalopathy; G81.94 Hemiplegia, unspecified affecting left nondominant side; N17.9 Acute kidney failure, unspecified; I50.32 Chronic diastolic (congestive) heart failure; I63.8 Other cerebral infarction; G20 Parkinson's disease; H35.30 Unspecified macular degeneration; L89.151 Pressure ulcer of sacral region, stage 1; H53.47 Heteronymous bilateral field defects; R47.81 Slurred speech; E80.4 Gilbert syndrome; E78.5 Hyperlipidemia, unspecified; R33.9 Retention of urine, unspecified; R29.704 NIHSS score 4; R29.715 NIHSS score 15; I48.2 Chronic atrial fibrillation; H51.0 Palsy (spasm) of conjugate gaze; I11.0 Hypertensive heart disease with heart failure; R29.810 Facial weakness; R47.01 Aphasia; R27.0 Ataxia, unspecified; Z79.01 Long term (current) use of anticoagulants; Z79.899 Other long term (current) drug therapy
CPT/HCPCS: 36415; 36416; 70450; 70496; 70544; 70551; 76705; 80053; 80061; 80306; 81015; 82247; 82248; 82550; 82553; 82565; 82607; 82746; 83036; 83735; 84484; 85014; 85018; 85025; 85049; 85610; 85730; 93005; 93010; 93306; 93880; A4216; G8978-GP-CL; G8979-GP-CJ; G8987-GO-CK; G8988-GO-CJ; G8996-GN-CI; G8996-GN-CL; G8997-GN-CI

== ENCOUNTER 2019-02-08 14:52 | Observation (INO) | payer MEDICARE ==
[2019-02-08 15:17] LABS: #Basophils 0.1 thou/uL (0.0-0.2); #Eosinphils 0.2 thou/uL (0.0-0.7); #Lymphocytes 2.5 thou/uL (1.20-3.40); #Monocytes 0.6 thou/uL (0.11-0.59); #Neutrophils 4.3 thou/uL (1.40-6.50); %Basophils 1.1 % (0.0-1.0); %Eosinophils 2.3 % (0.0-10.0); %Lymphocytes 32.1 % (21.0-51.0); %Monocytes 7.9 % (0.0-10.0); %Neutrophils 56.6 % (42.0-75.0); Hemoglobin 13.4 g/dL (14.0-18.0); Mean Corpuscular HGB CONC 32.7 g/dL (32.0-36.0); Mean Corpuscular Hemoglobin 32.5 pg (27.0-31.0); Mean Corpuscular Volume 99.4 fL (78.0-98.0); Mean Platelet Volume 6.8 fL (7.4-10.4); Platelet Count 267 thou/uL (130-400); Red Blood Cell (RBC) Count 4.12 mill/uL (4.70-6.10); White Blood Cell (WBC) Count 7.6 thou/uL (4.8-10.8)
[2019-02-08 15:28] LABS: INR-International Normal Ratio 1.1; PTT 26.8 SEC (22.9-36.1); Prothrombin Time 14.2 SEC (12.0-14.7)
[2019-02-08 15:31] LABS: ALT (SGPT) Less than 7 U/L (8-55); AST (SGOT) 18 U/L (5-34); Albumin 3.7 g/dL (3.4-4.8); Alkaline Phosphatase 58 U/L (40-150); Anion Gap 12 mmol/L (10-20); BUN (Urea Nitrogen) 25 mg/dL (8.4-25.7); Bilirubin, Total 0.8 mg/dL (0.2-1.2); CK (CPK) 43 U/L (30-200); Calc. Creatinine Clearance 0 mL/min (70-130); Calcium 9.2 mg/dL (7.8-10.44); Carbon Dioxide 23 mmol/L (23-31); Chloride 108 mmol/L (98-107); Estimated GFR-MDRD 59; Globulin 2.4 g/dL (2.4-3.5); Glucose 155 mg/dL (83-110); Potassium 4.6 mmol/L (3.5-5.1); Protein, Total 6.1 g/dL (5.8-8.1); Sodium 138 mmol/L (136-145)
--- NOTE | 2019-02-08 15:32 | CT ---
HEAD CT NONCONTRAST: Date: 02/08/19 COMPARISON: 06/29/18. 06/05/[address] INDICATION: Left side drift, new onset symptoms of neurologic deficit. FINDINGS: There is an interval moderate sized lacunar infarction of the right lentiform nucleus extending into right johnson radiata. No hemorrhage, mass effect, or midline shift. There is mild generalized parench ymal atrophy. [id number] mucus retention cyst formation and paranasal sinus mucosal thickening presen t. IMPRESSION: 1. No intracranial hemorrhage or mass effect. 2. Interval temporal evolution of right basal ganglia/lentiform nucleus infarction. Telephone call findings placed to ER physician, Edin Razo, at 1514 hours on 02/08/19. CODE CR. POS: [facility]
--- NOTE | 2019-02-08 15:43 | RAD ---
PORTABLE CHEST 1 VIEW: Date; 02/08/19 Time: 1527 hours HISTORY: Right facial droop and weakness, altered mental status. FINDINGS: Comparison made with exam of 07/05/18. The heart size is normal. The aorta is tortuous. No focal areas of consolidation, pneumothoraces, fra nk pulmonary edema, or pleural effusions are seen. IMPRESSION: No acute process. POS: [facility]
[2019-02-08] MEDS ORDERED: Acetaminophen 325 MG TAB PO PRN (16:33)
--- NOTE | 2019-02-08 16:33 | PDOC.FPRHP ---
- History of Present Illness Chief Complaint: L side weakness, confusion History of Present Illness: 83 yo M with PMH of CVA May 2018, Parkinsons, CHF, HTN, and Afib who presents for Right sided weakness and left facial droop as well as confusion starting this morning at 0800. Pt lives at home with and 24 hr caregivers. Granddaughter went to check on them this afternoon, and spoke with caregivers. He couldn't hold his coffee like normal, he was having muscle twitches in both arms, was weak and tired and wanted to go back to bed which is abnormal for him. He was confused and had some difficulty talking. Normally, he is AOx3 per daughters. For afib, family does not believe he is on xarelto because of fall risk, but is going to check. In ED, EKG showed atrial fib. CT head was negative for bleed. - Allergies/Adverse Reactions Allergies Allergy/AdvReac Type Severity Reaction Status Date / Time No Known Drug Allergies Allergy Verified 06/04/18 03:25 - Home Medications Medication Instructions Recorded Confirmed Type Famotidine [Pepcid] 20 mg PO PRN PRN 06/04/18 06/04/18 History Amlodipine [Norvasc] 10 mg PO DAILY 30 Days #30 tab 06/09/18 Rx Apixaban [Eliquis] 5 mg PO BID 30 Days #30 tab 06/09/18 Rx Atorvastatin Calcium [Lipitor] 80 mg PO HS 30 Days #30 tab 06/09/18 Rx Carbidopa/Levodopa [Sinemet] 25 mg PO TID 30 Days #90 tab 06/09/18 Rx Digoxin [Digox] 125 mcg PO DAILY 30 Days #30 tablet 06/09/18 Rx Docusate Sodium [Colace Liquid] 100 mg PO BID udcup 06/09/18 Rx Lisinopril [Zestril] 20 mg PO DAILY 30 Days #30 tab 06/09/18 Rx Metoprolol Tartrate [Lopressor] 25 mg PO BID 30 Days #60 tab 06/09/18 Rx Rasagiline Mesylate [Azilect] 1 mg PO DAILY 30 Days #30 tab 06/09/18 Rx - History PMHx: CVA May 2018, Parkinsons, CHF, HTN, and Afib, L sided macular degeneration PSHx: none FHx: no cancer Social: no t/a/drug use - Review of Systems General: reports: fatigue. denies: fever/chills, weight/appetite/sleep changes , night sweats Eyes: denies: eye pain, vision changes ENT: denies: nasal congestion, rhinorrhea Respiratory: denies: cough, congestion, shortness of breath Cardiovascular: denies: chest pain, palpitation, edema Gastrointestinal: reports: constipation. denies: nausea, vomiting, diarrhea, abdominal pain, GI bleeding Genitourinary: reports: other (hesitancy, slow stream). denies: incontinence, dysuria Skin: denies: rashes, lesions Musculoskeletal: denies: pain, tenderness Neurological: reports: weakness. denies: numbness Psychological: denies: anxiety, depression - Vital signs BP:172/91 HR: 86 RR: 15 Tmax: 97.7 Pox: 99% on RA Wt: 87.7 kg - Physical Exam Constitutional: NAD, awake, alert and oriented -Constitutional: speaks softly/whispers HEENT: normocephalic and atraumatic, PERRLA, EOMI, conjunctiva clear, MMM, oropharynx clear Neck: supple, no LAD Heart: normal S1/S2, no murmurs/rubs/gallops (irregularly irregular rhythm), no edema Lungs: CTAB, no respiratory distress, good air movement Abdomen: soft, non-tender, bowel sounds present, no masses/distention Musculoskeletal: normal structure -Musculoskeletal: increased tone on left side, not new per fam -Neurological: slight left facial droop, otherwise CN 2-12 intact. No slurring of speech, but patient whispers intention tremor present weakness LUE clinical rn liaison 4/5, LLE 4/5; contracture LUE Right side 5/5 upper and lower extremity Skin: no rash/lesions, good turgor, capillary refill <2 seconds Heme/Lymphatic: no unusual bruising or bleeding, no purpura Psychiatric: intact recent and remote memory, other (somewhat flat affect, whispers responses) FMR H&P: Results - Labs Result Diagrams: 02/08/19 15:02 02/08/19 15:02 Lab results: WBC 7.6 thou/uL (4.8-10.8) 02/08/19 15:02 Hgb 13.4 g/dL (14.0-18.0) L 02/08/19 15:02 Hct 40.9 % (42.0-52.0) L 02/08/19 15:02 MCV 99.4 fL (78.0-98.0) H 02/08/19 15:02 Plt Count 267 thou/uL (130-400) 02/08/19 15:02 Neutrophils % 56.6 % (42.0-75.0) 02/08/19 15:02 Sodium 138 mmol/L (136-145) 02/08/19 15:02 Potassium 4.6 mmol/L (3.5-5.1) 02/08/19 15:02 Chloride 108 mmol/L (98-107) H 02/08/19 15:02 Carbon Dioxide 23 mmol/L (23-31) 02/08/19 15:02 BUN 25 mg/dL (8.4-25.7) 02/08/19 15:02 Creatinine 1.18 mg/dL (0.7-1.3) 02/08/19 15:02 Glucose 155 mg/dL (83-110) H 02/08/19 15:02 Calcium 9.2 mg/dL (7.8-10.44) 02/08/19 15:02 Total Bilirubin 0.8 mg/dL (0.2-1.2) 02/08/19 15:02 AST 18 U/L (5-34) 02/08/19 15:02 ALT Less than 7 U/L (8-55) L 02/08/19 15:02 Alkaline Phosphatase 58 U/L (40-150) 02/08/19 15:02 Creatine Kinase 43 U/L (30-200) 02/08/19 15:02 Serum Total Protein 6.1 g/dL (5.8-8.1) 02/08/19 15:02 Albumin 3.7 g/dL (3.4-4.8) 02/08/19 15:02 - EKG Interpretation EKG: atrial fib - Radiology Interpretation Chest x-ray Status: report reviewed by me Additional comment: No acute process CT scan - head Status: image reviewed by me, report reviewed by me Additional comment: No acute changes FMR H&P: A/P - Problem List (1) Left-sided weakness Current Visit: No Status: Chronic Code(s): R53.1 - WEAKNESS (2) Atrial fibrillation Current Visit: No Status: Chronic Code(s): I48.91 - UNSPECIFIED ATRIAL FIBRILLATION (3) CHF (congestive heart failure) Current Visit: No Status: Chronic Code(s): I50.9 - HEART FAILURE, UNSPECIFIED (4) HLD (hyperlipidemia) Current Visit: No Status: Chronic Code(s): E78.5 - HYPERLIPIDEMIA, UNSPECIFIED (5) Hypertension Current Visit: No Status: Chronic Code(s): I10 - ESSENTIAL (PRIMARY) HYPERTENSION (6) Parkinsonism Current Visit: No Status: Chronic Code(s): G20 - PARKINSON'S DISEASE - Plan CVA vs TIA - Rt sided arm weakness, confusion, slight left facial droop. Family reports almost back to baseline. - Hx of CVA with Left sided deficits (left arm weakness) May 2018 - CT head neg - MRI pending - US carotids pending; recent vascular imaging carotids/[place] May 2018 showed no stenosis/abnormalities - TSH, AM FLP, mag/phos - PT/OT/Speech, pt desires placement at rehab facility. CM consulted. - Aspirin and statin - Neuro checks q4 hrs A-fib - Chronic, unsure if on anticoagulation with xarelto - Family planning to check and will discuss further tomorrow, pt has high fall/ bleeding risk HTN - Allow permissive HTN 220/110. Hold HTN meds for 24 hrs HLD - AM lipid panel - stop simvastatin, start atorvastatin 40 mg CHF -Continue home meds - Monitor for fluid overload Parkinson's - Family states he has had for ~7 yrs - Continue home medications - Fall precautions Diet: NPO until speech clears, then HH, Fluid restrict 1800 ml/day DVT ppx: held GI ppx: none PCP: Cecil Dispo: Admit to stroke obs for observation FMR H&P: Upper Level - Pertinent history 83 yo male who lives independently at home with 24 hour care presents for evaluation of Right sided facial droop and confusion. Per patient and family his symptoms began around 8 AM this morning. He had difficulty holding his coffee cup in his right hand and had difficulty eating which is not normal. He was also more confused than his baseline. Per family and patient he had a previous CVA in May 2018. Patient and family report his symptoms have improved since this morning. Please see above for more detailed history. Physical Exam: General: NAD CV: RRR, no murmurs Respiratory: CTA-bilaterally MSK: 4/5 LUE and LLE weakness Neuro: Slight left facial droop present. Unable to perform finger to nose on LUE. No other focal deficits Psych: Alert and Oriented. - Plan Date/Time: 02/08/19 7612 I, Efrem Frank MD, have evaluated this patient and agree with findings/ plan as outlined by medical intern resident. Pertinent changes/additions are listed here. 1. CVA - Previous CVA in 05/2018 - Plan for MRI and ECHO - Consult Stroke team - Consult PT/OT/ST - Rehab screen - ASA and Statin - Allow for permissive HTN (220/110) - Unclear history to anticoagulation history, will confirm prior to initiation or continuation. 2. Parkinson's Disease - Continue home medications - Fall precautions 3. A-fib - Continue home medications - Cardiac Monitoring 4. HTN - Hold home medications to allow permissive HTN - Restart home medications when appropriate PCP: Dr. Jacob CODE STATUS: FULL CODE Disposition: Stable, Will admit to Stroke for further evaluation.
[2019-02-08] MEDS ORDERED: Aspirin Chewable 81 MG TAB ONE (16:56)
[2019-02-08 17:32] LABS: Bilirubin Negative (Negative); Blood, Urine Negative (Negative); Clarity CLEAR (Clear); Glucose, Urine (Dipstick) Negative (Negative); Leukocyte Negative (Negative); Nitrite Negative (Negative); Protein, Urine (Dipstick) Negative (Neg-Trace); pH, Urine 5.5 (5.0-9.0)
--- NOTE | 2019-02-08 18:23 | ULT ---
BILATERAL CAROTID DUPLEX ULTRASOUND WITH SPECTRAL ANALYSIS AND COLOR FLOW EVALUATION 02/08/19 HISTORY: TIA/CVA. FINDINGS: Diaz scale, color flow, doppler evaluation with spectral analysis of the bilateral carotid arteries i s performed with 2D imaging. There is calcified atherosclerotic plaque seen within the left carotid b ulb and proximal left internal carotid artery with what appears to be eccentric soft atherosclerotic plaque in the proximal right internal carotid artery. There is less than 50% maximal stenosis in the bilateral internal carotid arteries according to the p eak systolic velocities and the ICA/CCA ratios. The peak systolic velocity in the right ICA is 48.7 c m/s with an ICA/CCA ratio of 0.71. The peak systolic velocity in the left ICA is 64.9 cm/s with an IC A/CCA ratio of 0.79. There has been no significant interval change when compared to velocity measurem ents noted on prior study on 06/04/18. Antegrade flow is demonstrated in the vertebral arteries bilaterally. IMPRESSION: No hemodynamically significant stenosis in the bilateral internal carotid arteries. POS: [facility]
[2019-02-08 18:33] LABS: Troponin I Less than 0.010 ng/mL (< 0.028)
[2019-02-08] MEDS ORDERED: Famotidine 20 MG TAB PO PRN (20:47)
[2019-02-08] MEDS ORDERED: Carbidopa/Levodopa 25-100 mg Tablet PO SCH (21:00)
[2019-02-08] MEDS ORDERED: Apixaban 5 MG TAB PO SCH (21:00)
[2019-02-08] MEDS ORDERED: Atorvastatin Calcium 40 MG TAB PO SCH (21:00)
[2019-02-08] MEDS ORDERED: Famotidine 20 MG TAB PO SCH (21:00)
[2019-02-08] MEDS ORDERED: Docusate Sodium 100 MG/10 ML UDCUP PO SCH (21:00)
[2019-02-08 21:42] LABS: Magnesium 1.8 mg/dL (1.6-2.6); Phosphorus 3.2 mg/dL (2.3-4.7)
[2019-02-08 21:47] LABS: Troponin I Less than 0.010 ng/mL (< 0.028)
[2019-02-08] MEDS: Metoprolol Tartrate 50 MG TAB PO SCH (22:39)
[2019-02-08] MEDS: Atorvastatin Calcium 40 MG TAB PO SCH (22:39)
[2019-02-08 23:44] VITALS: BMI 21.9
--- NOTE | 2019-02-09 05:59 | PDOC.FM ---
Addendum entered and electronically signed by Efrem Frank MD 02/09/19 10: 50: Documentation Error: CV exam: irregularly rhythm, regular rate, no murmurs. Original Note: - Subjective Subjective: 83 yo male seen at bedside this AM. Patient speaks very softly. His daughter is in the room with him. She states that he sometimes gets "crazy" when he gets dehydrated. Patient denies chest pain, SOB, continued confusion/weakness, or headaches. No other complaints overnight. - Objective Vital Signs & Weight: Vital Signs (12 hours) Temp Pulse Resp BP Pulse Ox 02/09/19 04:00 97.4 F L 77 18 155/95 H 98 02/09/19 00:00 97.3 F L 70 19 141/95 H 97 02/08/19 19:11 97.6 F 83 18 159/84 H 96 Weight Weight 75.6 kg I&O: 02/07/19 02/08/19 02/09/19 06:59 06:59 06:59 Intake Total 100 Balance 100 Result Diagrams: 02/08/19 15:02 02/08/19 15:02 Phys Exam - Physical Examination Constitutional: NAD HEENT: moist MMs Respiratory: no wheezing, clear to auscultation bilateral Cardiovascular: RRR, no significant murmur Gastrointestinal: soft, non-tender, no distention, positive bowel sounds Musculoskeletal: no edema, pulses present Neurological: normal sensation, moves all 4 limbs LUE weakness. Failed finger to nose on left side. Psychiatric: A&O x 3 Skin: no rash Dx/Plan (1) Left-sided weakness Code(s): R53.1 - WEAKNESS Status: Chronic (2) Atrial fibrillation Code(s): I48.91 - UNSPECIFIED ATRIAL FIBRILLATION Status: Chronic (3) HLD (hyperlipidemia) Code(s): E78.5 - HYPERLIPIDEMIA, UNSPECIFIED Status: Chronic (4) Hypertension Code(s): I10 - ESSENTIAL (PRIMARY) HYPERTENSION Status: Chronic (5) Parkinsonism Code(s): G20 - PARKINSON'S DISEASE Status: Chronic - Plan Plan: 1. Unilateral weakness, likely CVA - Previous CVA in 05/2018 - Plan for MRI and ECHO - Carotid dopplers showed no significant stenosis - Consult Stroke team - Consult PT/OT/ST - Rehab screen - ASA and Statin - Allow for permissive HTN (220/110) for 24 hours - Unclear history to anticoagulation history, will confirm prior to initiation or continuation. 2. Parkinson's Disease - Continue home medications - Fall precautions 3. A-fib - Continue home medications - Cardiac Monitoring 4. HTN - Hold home medications to allow permissive HTN - Restart home medications when appropriate 5. HLD - FLP this AM pending. - Continue statin Disposition: Stable, will await further results and make treatment changes as needed. Addendum - Attending - Attending Attestation Date/Time: 02/09/19 3318 I personally evaluated the patient and discussed the management with Dr. Frank I agree with the History, Examination, Assessment and Plan documented above with any addition or exceptions noted below. Permissive hypertension restart home BP rx await MRI . Question recent DOAC and candidacy discuss CHADS_VAS and HASBLED risk. Await MRI and consider rehab opportunities.
[2019-02-09 06:15] LABS: Cardiac Risk 3.6 (Less than 4.5)
[2019-02-09] MEDS ORDERED: Simvastatin 20 MG TAB PO SCH (09:00)
[2019-02-09] MEDS ORDERED: [UNRECOGNIZED DRUG - OTHER] PO SCH (09:00)
[2019-02-09] MEDS ORDERED: CARBIDOPA PO SCH (09:00)
[2019-02-09] MEDS ORDERED: LEVODOPA PO SCH (09:00)
[2019-02-09] MEDS ORDERED: ENTACAPONE PO SCH (09:00)
[2019-02-09] MEDS ORDERED: Amlodipine 10 MG TAB PO SCH (09:00)
[2019-02-09] MEDS ORDERED: Lisinopril 20 MG TAB PO SCH (09:00)
[2019-02-09] MEDS: Digoxin 0.125 MG TAB PO SCH (09:06)
[2019-02-09] MEDS: Carbidopa/Levodopa 25-100 mg Tablet PO SCH ×4 (09:06→20:50)
[2019-02-09] MEDS: Metoprolol Tartrate 50 MG TAB PO SCH ×2 (09:07→20:50)
[2019-02-09] MEDS: Aspirin 81 mg Enteric Coated Tablet PO SCH (09:08)
[2019-02-09] MEDS: Entacapone 200 mg Tablet PO SCH ×4 (09:10→21:02)
--- NOTE | 2019-02-09 12:27 | EKG ---
Test Reason : Blood Pressure : / mmHG Vent. Rate : 086 BPM Atrial Rate : 381 BPM P-R Int : 000 ms QRS Dur : 078 ms QT Int : 366 ms P-R-T Axes : 000 -12 000 degrees QTc Int : 437 ms Atrial flutter with variable A-V block Nonspecific T wave abnormality Abnormal ECG Confirmed by PARI MCGARRY, INEZ Gomez ([id number]), book or script editor ABNER JONAS ([id number]) on 02/09/2019 12:26:37 PM Referred By: Confirmed By:INEZ YAÑEZ MD
--- NOTE | 2019-02-09 14:09 | MRI ---
MRI BRAIN NONCONTRAST: DATE: 02/09/2019. HISTORY: An 83-year-old male status post stroke. Dysarthria. Left-sided drift. COMPARISON: No prior MRIs. FINDINGS: There is a region of encephalomalacia and gliosis which is oriented with long axis in the AP dimensio n, measuring approximately 3.5 x 0.7 x 1.5 cm which begins at the posterior inferior aspect of right basal ganglia/internal and external capsule, and ascends to the right periventricular white matter, w ith involvement of the body of the right caudate nucleus. There is no restricted diffusion to indica te any acute infarction. No obstructive hydrocephalus, mass effect, midline shift, or extraaxial flu id collection. There is mild T2 hyperintensity involving the right cerebral peduncle which extends i nferiorly to involve the carol slightly to the right of midline. There is minimal hemosiderin stain i nvolving the area of encephalomalacia described above, but no other regions of acute or remote intraa xial hemorrhage. The degree of chronic ischemic white matter changes of the cerebrum is mild. There is a right mastoid effusion. IMPRESSION: 1. 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 2. No acute intracranial findings. ANGÉLICA Lyle POS: RASHID
[2019-02-09] MEDS: Atorvastatin Calcium 40 MG TAB PO SCH (20:49)
--- NOTE | 2019-02-10 06:28 | PDOC.FM ---
- Subjective Subjective: Pt feels well this AM, started coughing some overnight. Encouraged him to continue taking deep, full breaths. No other complaints. - Objective Vital Signs & Weight: Vital Signs (12 hours) Temp Pulse Resp BP Pulse Ox 02/10/19 04:00 98.9 F 90 16 147/86 H 94 L 02/10/19 00:00 97.8 F 89 16 162/109 H 95 02/09/19 20:00 98.4 F 84 16 134/79 96 Weight Weight 75 kg I&O: 02/08/19 02/09/19 02/10/19 06:59 06:59 06:59 Intake Total 100 1040 Output Total 200 Balance 100 840 Result Diagrams: 02/08/19 15:02 02/08/19 15:02 Phys Exam - Physical Examination Constitutional: NAD HEENT: PERRLA, moist MMs Neck: no nodes, supple Respiratory: no wheezing, clear to auscultation bilateral coughing Cardiovascular: RRR, no significant murmur Gastrointestinal: soft, non-tender, no distention Musculoskeletal: no edema, pulses present L sided facial droop, L arm weakness 3/5, normal sensation Psychiatric: normal affect Skin: normal turgor, cap refill <2 seconds Dx/Plan (1) Left-sided weakness Code(s): R53.1 - WEAKNESS Status: Chronic (2) Atrial fibrillation Code(s): I48.91 - UNSPECIFIED ATRIAL FIBRILLATION Status: Chronic (3) CHF (congestive heart failure) Code(s): I50.9 - HEART FAILURE, UNSPECIFIED Status: Chronic (4) HLD (hyperlipidemia) Code(s): E78.5 - HYPERLIPIDEMIA, UNSPECIFIED Status: Chronic (5) Hypertension Code(s): I10 - ESSENTIAL (PRIMARY) HYPERTENSION Status: Chronic (6) Parkinsonism Code(s): G20 - PARKINSON'S DISEASE Status: Chronic - Plan Plan: Unilateral weakness, likely TIA vs delirium vs medication reaction - Previous CVA in 05/2018 - MRI: no acute changes - ECHO: pending - Carotid dopplers showed no significant stenosis - Consult Stroke team - Consult PT/OT/ST - Rehab screen - ASA - Allowed for permissive HTN (220/110) for 24 hours - Unclear history to anticoagulation history, will confirm prior to initiation or continuation. Parkinson's Disease - Continue home medications - Fall precautions A-fib - Continue home medications - Cardiac Monitoring - Not on home anticoagulation per family due to side effects, encouraged family to discuss with PCP HTN - Restarted home medications HLD - FLP wnl - Discontinue statin, patient was not taking at home. UA -dirty catch, <100,000 colonies. Will not initiate antibiotics at this time Disposition: Stable, most likely discharge to home today after Echo Addendum - Attending - Attending Attestation Date/Time: 02/10/19 0817 I personally evaluated the patient and discussed the management with Dr. Marley. I agree with the History, Examination, Assessment and Plan documented above with any addition or exceptions noted below. Patient has been ruled out for new CVA. Suspect either TIA or medication effect as his reason for presentation. MRI negative for acute change. Awaiting echo today, and likely discharge this afternoon back to his facility for continued care and therapy that has previously been in place. Patient denies complaints this AM and is ready for discharge.
[2019-02-10] MEDS: Digoxin 0.125 MG TAB PO SCH (08:57)
[2019-02-10] MEDS: Metoprolol Tartrate 50 MG TAB PO SCH (08:57)
[2019-02-10] MEDS: Aspirin 81 mg Enteric Coated Tablet PO SCH (08:58)
[2019-02-10] MEDS: Entacapone 200 mg Tablet PO SCH (08:58)
[2019-02-10] MEDS: Carbidopa/Levodopa 25-100 mg Tablet PO SCH (08:58)
[2019-02-10 11:48] VITALS: BP 121/81; TEMP 97.4
--- NOTE | 2019-02-11 20:27 | DIS ---
DATE OF ADMISSION: 02/08/2019 DATE OF DISCHARGE: 02/10/2019 RESIDENT: Adela Marley MD ADMITTING ATTENDING: Shawn Lora MD DISCHARGE ATTENDING: Gabriel Souza MD CONSULTS: None. PROCEDURES: 1. Brain CT 02/08/2019, impression, no intracranial hemorrhage or mass effect. 2. Chest x-ray 02/08/2019, no acute process. 3. Echocardiogram 02/08/2019, atrial flutter, nonspecific T-wave abnormality. 4. An echo was done, which showed ejection fraction of 50% to 55%. Moderately dilated left atrium. Left ventricular normal size. Mild aortic regurg. Mild tricuspid regurg. Date of that was 02/10/2019. 5. Carotid Doppler study 02/08/2019, no hemodynamically significant stenosis in the bilateral internal carotid arteries. 6. Brain MRI 02/09/2019, impression, old infarction of the right corpus striatum , and associated mild rt Wallerian degeneration of the brainstem. No acute intracranial finding. PRIMARY DIAGNOSES: Likely transient ischemic attack. SECONDARY DIAGNOSES: 1. Parkinson disease. 2. Atrial fibrillation. 3. Hypertension. 4. Hyperlipidemia. DISCHARGE MEDICATIONS: 1. Tylenol 650 mg p.o. q.4 hours p.r.n. for headache, fever, and mild pain. 2. Aspirin 81 mg p.o. daily. 3. Digoxin 125 mcg p.o. daily. 4. Metoprolol 25 mg p.o. b.i.d. 5. Rasagiline 1 mg p.o. daily. 6. Carbidopa/levodopa 200 mg p.o. q.i.d. Discontinued medications 1. Simvastatin. HISTORY OF PRESENT ILLNESS/HOSPITAL COURSE: An 83-year-old male with past medical history of CVA in 2018, Parkinson's, CHF, hypertension, and atrial fibrillation , who presented with right-sided weakness as well as confusion starting in the morning at 8 a.m. The patient lives at home with his and caregivers. Caregiver went to check on him and spoke with caregivers. They reported that he could not hold his coffee in his right hand like normal, that he was having muscle twitches in both his arms, was weak and tired, wants to go back to bed, which is abnormal for him. He was confused and difficulty speaking. Normally, he is A and O x3 per his daughters. His atrial fibrillation is stable. We did not believe he is on Xarelto because of his fall risk, but they were going to try to check what he was on at home. In the ED, EKG showed atrial fib. His CT head was negative for bleeds. An MRI was done of the head, which was negative. His weakness and confusion were resolved by the time that we are going to see him. Family reported he was almost back to baseline. Ultrasound of carotids is negative. His recent vascular imaging of carotid and [place] of [place] in May 2018, showed no stenosis or abnormalities. An echo was done, which showed ejection fraction of 50% to 55%. Moderately dilated left atrium. Left ventricular normal size. Mild aortic regurgitation. Mild tricuspid regurgitation. Date of that was 02/10/2019. Permissive hypertension was allowed for 24 hours. It did not appear that the patient was on anticoagulation at home. Discussed this with the family and they were unsure if he was on Xarelto, but thought that it was stopped due to the concerns for risk of bleeding while on medication. Pt appears to currently be on low intensity statin. Pt currently on low-intensity statin. Lipid panel normal. Unable to calculate ASCVD risk due to age. With patient's other comorbidities and age and prognosis with Parkinson's, patient may not be a good candidate for high intensity statin use. Family wanted to discuss statin dosing with PCP when they follow up with him. Discontinued for now. For his Parkinson's, his home medications were continued. The patient has atrial fibrillation as discussed above. The patient does not appear to be on home anticoagulation. Encouraged family to discuss with PCP at next clinic appointment. UA was done, which showed a dirty catch. Antibiotics were not initiated as there was less than 100,000 colonies. The patient was discharged in stable condition, back to baseline. DISPOSITION: Stable. DISCHARGE INSTRUCTIONS: 1. Location, home. 2. Diet, heart healthy diet. 3. Activity, orthopedic limitations. 4. Therapy, occupational therapy, physical therapy, and speech therapy. 5. Follow up with Dr. Brandt Jacob in 3 days. Family wants to discuss continuing/discontinuing statin therapy for stroke prevention as well as anticoagulation for atrial fibrillation. Job ID: [id number] [facility]
== END 2019-02-10 12:13 | disposition home or self-care (01) ==
LOC: ERS 14:52 → 2SE 16:00
PROVIDERS: ADMIT Family Medicine; ATTEND Family Medicine
DX: R53.1 Weakness (principal); R41.0 Disorientation, unspecified; R29.810 Facial weakness; G20 Parkinson's disease; I48.91 Unspecified atrial fibrillation; E78.5 Hyperlipidemia, unspecified; I11.0 Hypertensive heart disease with heart failure; I50.9 Heart failure, unspecified; Z86.73 Personal history of transient ischemic attack (TIA), and cerebral infarction without residual deficits; Z79.899 Other long term (current) drug therapy
CPT/HCPCS: 70450; 70551; 71045; 80061; 81003; 82550; 82962; 83735; 84100; 84484 ×2; 85610; 85730; 87086; 93005; 93306; 93880; 97116; 97139 ×2; 97530; 99285; G0378 ×2; 36415; 36416; 80053; 84443; 85025

== ENCOUNTER 2020-09-04 14:20 | Inpatient (IN) | payer OTHER, SELFPAY ==
[2020-09-04] MEDS ORDERED: Benzonatate 100 MG CAP PO PRN (17:24)
[2020-09-04] MEDS ORDERED: Labetalol HCl 100 MG/20 ML VIAL SLOW IVP PRN (17:24)
[2020-09-04] MEDS ORDERED: Ibuprofen 200 MG TAB PO PRN (17:24)
[2020-09-04] MEDS ORDERED: Ondansetron ODT 4 MG TAB PO PRN (17:24)
[2020-09-04] MEDS ORDERED: Acetaminophen 500 MG TAB PO PRN (17:24)
[2020-09-04] MEDS ORDERED: Ondansetron PF 4 MG/2 ML Vial IVP PRN (17:24)
[2020-09-04] MEDS: Sodium Chloride 0.9% 1,000 ML IV SCH (18:39)
[2020-09-04] MEDS: cefTRIAXone\\ROCEPHIN 2 GM in Sodium Chloride 0.9% 100 ML IVPB SCH (18:39)
[2020-09-04] MEDS: Metoprolol Tartrate 25 MG TAB PO SCH (20:14)
[2020-09-04] MEDS: Famotidine 20 MG TAB PO SCH (20:15)
[2020-09-04] MEDS: Carbidopa/Levodopa 25-250 mg Tablet PO SCH (20:15)
[2020-09-04] MEDS: Vancomycin HCl 1.25 GM in Sodium Chloride 0.9% 250 ML 300 ML IVPB SCH (21:11)
--- NOTE | 2020-09-04 23:32 | HP ---
PRIMARY CARE PROVIDER: Brandt Jacob MD. CHIEF COMPLAINT: General weakness. HISTORY OF PRESENT ILLNESS: This is an 85-year-old male, who presented initially to [facility] Emergency Room complaining of generalized weakness over the last 24 hours. The history is obtained after review of the electronic medical record as well as discussions with the patient's daughter at the bedside. The patient currently unable to provide any coherent history. The patient was noted lethargic, less conversant and mumbling per family reports over the last 24 hours. The patient was noted with blood in his brief from urine. At which point, the family decided to have the patient evaluated in the emergency room. No fever was noted at home. However, upon arrival in the emergency room, the patient was noted with a temperature of 100.5 degrees Fahrenheit. The patient normally requires assistance with activities of daily living and is generally wheelchair-bound at home. The patient receives 24 hour care with a lay out drafter and in addition the family visits. No specific history of recent fall, injury, travel history or exposure. The daughter reports last urinary tract infection that she can recollect was approximately 1-3 years prior to this evaluation. The patient does use an adult brief and is incontinent of urine. In the emergency room, the patient underwent general evaluation, meeting sepsis criteria with suspected urinary tract infection source. The patient received 2 L of intravenous normal saline in addition to IV vancomycin and Unasyn in addition to 1 g of acetaminophen. The patient was transferred to [facility] for admission and further evaluation. PAST MEDICAL HISTORY: 1. Advanced Parkinson disease. 2. Atrial fibrillation, chronic. 3. Wheelchair-bound. 4. Macular degeneration. 5. 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 6. Hypertension. 7. History of congestive heart failure. PAST SURGICAL HISTORY: Left eye surgery due to macular degeneration. CURRENT MEDICATIONS: 1. Metoprolol tartrate 12.5 mg p.o. at bedtime. 2. Carbidopa levodopa 25/250 mg two and half tablets p.o. q.4 hours while awake. 3. Lipitor 20 mg p.o. daily. 4. Digoxin 125 mcg p.o. daily. 5. Enteric-coated aspirin 81 mg p.o. daily. ALLERGIES: NO KNOWN DRUG ALLERGIES. FAMILY HISTORY: No inheritable diseases per family report. SOCIAL HISTORY: Resides in [place], [place], contracted 24 hour care. No alcohol, tobacco, or illicit drug use. Mobilizes with a wheelchair, needing maximal assistance for transfers. Incontinent of urine, using adult briefs. No recent fall reported. REVIEW OF SYSTEMS: CONSTITUTIONAL: Negative for weight loss or gain, ability to conduct usual activities. SKIN: Negative for rash, itching. EYES: Negative for double vision, pain. ENT/MOUTH: Negative for nose bleeding, neck stiffness, pain, tenderness. CARDIOVASCULAR: Negative for palpitations, dyspnea on exertion, orthopnea. RESPIRATORY: Negative for shortness of breath, wheezing, cough, hemoptysis, fever or night sweats. GASTROINTESTINAL: Negative for poor appetite, abdominal pain, heartburn, nausea, vomiting, constipation, or diarrhea. GENITOURINARY: Negative for urgency, frequency, dysuria, nocturia. MUSCULOSKELETAL: Negative for pain, swelling. NEUROLOGIC/PSYCHIATRIC: Negative for anxiety, depression. ALLERGY/IMMUNOLOGIC: Negative for skin rash, bleeding tendency. Otherwise negative except as stated per HPI. PHYSICAL EXAMINATION: VITAL SIGNS: On admission in the emergency room showed blood pressure 137/96, pulse 106, respiratory rate 18, temperature 100.5 degrees Fahrenheit, O2 saturation 94% on room air. GENERAL APPEARANCE: This is an 85-year-old male, mumbling incomprehensible words, alert, in mild distress. HEENT: Pupils are equal, round, reactive to light and accommodation. Extraocular muscles are intact. No scleral icterus. No conjunctival injection. Nares patent. OP is clear. Oral mucosa dry. NECK: Supple. No cervical adenopathy. No thyromegaly. No carotid bruits. No JVD appreciated. Cervical spine with full active and passive range of motion. No meningeal signs noted. CHEST: Lungs are clear to auscultation bilaterally. CARDIOVASCULAR: S1-S2 with irregular rate and rhythm. ABDOMEN: Rounded, soft, nontender, and nondistended. Bowel sounds are positive in all 4 quadrants. There is no hepatosplenomegaly. No abdominal bruits. No rebound or guarding appreciated. EXTREMITIES: Warm and dry with fair turgor. No clubbing, cyanosis, or asymmetric edema appreciated. Pulses palpable distally at the dorsalis pedis, posterior tibial, and popliteal arteries bilaterally. Capillary refill less than 2 seconds. NEUROLOGIC: Mumbles incomprehensible words. Alert. Oriented to person. Not observed ambulatory during this exam. Left hemiparesis noted. PERTINENT LABORATORY AND X-RAY FINDINGS: Sodium is 137, potassium 4.4, chloride 103, CO2 of 23, BUN 28, creatinine 1.30. Estimated GFR 52, glucose 180, lactic acid level 1.8, calcium 9.1, total bilirubin 2.3, AST 17, ALT less than 6, alkaline phosphatase 59. CBC showed a white blood cell count of 20.9, hemoglobin 13, hematocrit 41, MCV 101, platelet count 218 with 75% neutrophils and 14% bands. Urinalysis showed large blood and positive nitrate and leukocyte esterase with greater than 50 rbcs per high-power field and 7-10 wbcs per high-power field, 4+ bacteria. IMAGING: EKG dated 09/04/2020 by my interpretation shows atrial fibrillation with heart rates in the 90s. Normal R-wave progression noted in the precordial leads. Normal axis. No acute ST-T wave changes appreciated. ASSESSMENT/PLAN: 1. Sepsis secondarily to urinary tract infection. The patient will be admitted to the telemetry unit. We will continue intravenous normal saline at 125 mL/hour. Rocephin 2 g IV daily with additional vancomycin 1.25 g IV q.12 hours. Urine and blood cultures pending. Serial lactate trending per protocol. 2. Acute metabolic encephalopathy secondary to #1. We will continue management as outlined in #1. Continue hydration and fluid resuscitation. Reorientation techniques with family at the bedside. 3. Acute kidney injury on chronic kidney disease, stage 2. Continue IV fluids as outlined previously. Avoid nephrotoxic agents and limit contrast exposure. Repeat creatinine in the a.m. 4. Advanced Parkinson disease. Resume home carbidopa levodopa. General fall risk precautions. 5. Dysphagia, chronic. Obtain speech therapy evaluation for safety of oral intake. 6. Hypertension. Resume home blood pressure regimen and monitor clinical response. 7. Chronic atrial fibrillation. Rate controlled currently. Resume metoprolol and digoxin. 8. Prophylaxis. Sequential compression devices while in bed. Pepcid 20 mg p.o. b.i.d. CODE STATUS: Full. Surrogate medical decision maker is the patient's daughter. In this dictation present accomplished discharge thank you. Job ID: [id number] [facility]
[2020-09-05] MEDS: Sodium Chloride 0.9% 1,000 ML IV SCH ×2 (04:17→14:45)
[2020-09-05 04:35] LABS: #Eosinphils 0.1 thou/uL (0.0-0.7); #Lymphocytes 1.4 thou/uL (1.20-3.40); #Monocytes 0.8 thou/uL (0.11-0.59); #Neutrophils 10.2 thou/uL (1.40-6.50); %Basophils 0.3 % (0.0-1.0); %Eosinophils 1.1 % (0.0-10.0); %Lymphocytes 11.4 % (21.0-51.0); %Monocytes 6.2 % (0.0-10.0); Hemoglobin 11.5 g/dL (14.0-18.0); Mean Corpuscular HGB CONC 33.9 g/dL (32.0-36.0); Mean Corpuscular Hemoglobin 34.3 pg (27.0-31.0); Platelet Count 182 thou/uL (130-400); RBC Distribution Width 11.7 % (11.5-14.5); Red Blood Cell (RBC) Count 3.36 mill/uL (4.70-6.10); White Blood Cell (WBC) Count 12.6 thou/uL (4.8-10.8)
[2020-09-05 05:02] LABS: ALT (SGPT) Less than 7 U/L (8-55); AST (SGOT) 11 U/L (5-34); Albumin 2.7 g/dL (3.4-4.8); Alkaline Phosphatase 47 U/L (40-110); Anion Gap 8 mmol/L (10-20); BUN (Urea Nitrogen) 23 mg/dL (8.4-25.7); Bilirubin, Total 1.5 mg/dL (0.2-1.2); Calc. Creatinine Clearance 63 mL/min (70-130); Calcium 7.8 mg/dL (7.8-10.44); Carbon Dioxide 22 mmol/L (23-31); Chloride 111 mmol/L (98-107); Estimated GFR-MDRD 74; Globulin 2.7 g/dL (2.4-3.5); Glucose 125 mg/dL (83-110); Potassium 3.9 mmol/L (3.5-5.1); Protein, Total 5.4 g/dL (5.8-8.1); Sodium 137 mmol/L (136-145)
[2020-09-05] MEDS: Aspirin 81 mg Enteric Coated Tablet PO SCH (09:07)
[2020-09-05] MEDS: Famotidine 20 MG TAB PO SCH ×2 (09:07→20:22)
[2020-09-05] MEDS: Carbidopa/Levodopa 25-250 mg Tablet PO SCH ×4 (09:08→20:23)
[2020-09-05] MEDS: Digoxin 0.125 MG TAB PO SCH (09:09)
[2020-09-05] MEDS: Vancomycin HCl 1.25 GM in Sodium Chloride 0.9% 250 ML 300 ML IVPB SCH (09:09)
[2020-09-05] MEDS: Atorvastatin Calcium 20 MG TAB PO SCH (09:10)
[2020-09-05 10:29] VITALS: BMI 22.8
[2020-09-05 12:34] LABS: SARS-CoV-2 MS2 Positive; SARS-CoV-2 N Gene Negative; SARS-CoV-2 S Gene Negative; SARS-CoV-2 by NAA Not Detected (NotDetected); SARS-CoV-2 orf1ab Negative
--- NOTE | 2020-09-05 14:42 | PDOC.HOSPP ---
- Subjective Encounter Date: 09/05/20 Encounter Time: 14:40 Subjective: f/u for sepsis due to UTI on Rocephin/Vancomycin/IVF's. Family notes pt much improved today. - Objective Vital Signs & Weight: Vital Signs (12 hours) Temp Pulse Resp BP Pulse Ox 09/05/20 11:16 98.2 F 95 22 H 115/66 96 09/05/20 07:28 98.8 F 89 17 143/76 H 97 09/05/20 03:09 100.0 F H 103 H 16 122/84 95 Weight Admit Weight 170 lb 6.4 oz Weight 178 lb 6.4 oz I&O: 09/04/20 09/05/20 09/06/20 06:59 06:59 06:59 Intake Total 2147 Output Total 6 Balance 2141 Result Diagrams: 09/05/20 04:08 09/05/20 04:08 Additional Labs: Microbiology 09/04/20 12:45 Venous blood - Right Hand Blood Culture - Preliminary Specimen has been received and culture in progress. No Growth to date. 09/04/20 12:30 Urine Straight Catheter Urine Culture - Preliminary Presumptive Escherichia coli 09/04/20 12:20 Venous blood - Left Arm Blood Culture - Preliminary Specimen has been received and culture in progress. No Growth to date. Laboratory Tests 09/04/20 09/04/20 12:20 18:57 WBC 20.9 H Hgb 13.3 L SARS-CoV-2 (PCR) Not Detected EKG Reviewed by me: Yes (Tele - A-fib in 's) Hospitalist ROS - Medication Medications: Active Medications Generic Name Dose Route Start Last Admin Trade Name Xiomara PRN Reason Stop Dose Admin Aspirin 81 mg 09/05/20 09:00 09/05/20 09:07 Aspirin 81 Mg Enteric Coated Tablet PO 81 mg DAILY AMBER Administration Atorvastatin Calcium 20 mg 09/05/20 09:00 09/05/20 09:10 Atorvastatin Calcium 20 Mg Tab PO 20 mg DAILY AMBER Administration Carbidopa/Levodopa 2.5 tab 09/04/20 21:00 09/05/20 12:29 Carbidopa/Levodopa 25-250 Mg Tablet PO 2.5 tab QID AMBER Administration Digoxin 0.125 mg 09/05/20 09:00 09/05/20 09:09 Digoxin 0.125 Mg Tab PO 0.125 mg DAILY AMBER Administration Famotidine 20 mg 09/04/20 21:00 09/05/20 09:07 Famotidine 20 Mg Tab PO 20 mg BID AMBER Administration Ceftriaxone Sodium 2 gm/ 100 mls @ 200 mls/hr 09/04/20 18:30 09/04/20 18:39 Sodium Chloride IVPB 100 mls Q24HR AMBER Administration Sodium Chloride 1,000 mls @ 125 mls/hr 09/04/20 17:24 09/05/20 04:17 Normal Saline 0.9% IV 1,000 mls .Q8H AMBER Administration Metoprolol Tartrate 12.5 mg 09/04/20 21:00 09/04/20 20:14 Metoprolol Tartrate 25 Mg Tab PO 12.5 mg HS AMBER Administration - Exam General Appearance: NAD, awake alert Eye: PERRL, anicteric sclera ENT: normocephalic atraumatic, no oropharyngeal lesions Neck: supple, symmetric, no JVD, no thyromegaly, no lymphadenopathy Heart: no gallops, no rubs, normal peripheral pulses, irregular Heart - other findings: S1, S2 Respiratory: CTAB, no wheezes, no rales, no ronchi, normal chest expansion Gastrointestinal: soft, non-tender, non-distended, normal bowel sounds, no palpable masses Extremities: no cyanosis, no clubbing, no edema Skin: normal turgor, no lesions Neurological: no new deficit Musculoskeletal: generalized weakness Psychiatric: oriented to person, oriented to place, flat affect Psychiatric - other findings: responsive to questions, speaks quietly Hosp A/P (1) Sepsis due to gram-negative UTI Code(s): A41.50 - GRAM-NEGATIVE SEPSIS, UNSPECIFIED; N39.0 - URINARY TRACT INFECTION, SITE NOT SPECIFIED Status: Acute Plan: Likely E. coli sepsis, continue Rocephin, d/c Vancomycin, continue IVF's (2) Acute metabolic encephalopathy Code(s): G93.41 - METABOLIC ENCEPHALOPATHY Status: Acute Plan: Resolving, continue supportive mgmt (3) RADHA (acute kidney injury) Code(s): N17.9 - ACUTE KIDNEY FAILURE, UNSPECIFIED Status: Acute Plan: Improved, continue IVF's, avoid nephrotoxic meds and limit contrast exposure (4) Atrial fibrillation Code(s): I48.91 - UNSPECIFIED ATRIAL FIBRILLATION Status: Chronic Plan: Rate improved with treatment of underlying sepsis, continue Metoprolol/Digoxin (5) Parkinsonism Code(s): G20 - PARKINSON'S DISEASE Status: Chronic Plan: Continue home Carbidopa/Levodopa - Plan plan discussed w/ family, continue antibiotics, vp digital marketing social media and crm, speech therapy, DVT proph w/SCDs Stable currently Continue Rocephin another 24h then de-escalate D/C Vancomycin Continue IVF's Monitor po intake with MECHANICAL APPRENTICE recommendations noted AM lab: BMP, CBC Likely home in am 09/06/20
[2020-09-05] MEDS ORDERED: FLU VACC QS2020-21(65YR UP)/PF 240 MCG/0.7 ML SYRINGE IM ONE (16:30)
[2020-09-05] MEDS: cefTRIAXone\\ROCEPHIN 2 GM in Sodium Chloride 0.9% 100 ML IVPB SCH (17:57)
[2020-09-05] MEDS: Metoprolol Tartrate 25 MG TAB PO SCH (20:23)
[2020-09-06] MEDS: Sodium Chloride 0.9% 1,000 ML IV SCH ×2 (00:23→08:18)
[2020-09-06 07:27] VITALS: BP 137/90; TEMP 98.8
[2020-09-06] MEDS: Atorvastatin Calcium 20 MG TAB PO SCH (08:18)
[2020-09-06] MEDS: Famotidine 20 MG TAB PO SCH (08:18)
[2020-09-06] MEDS: Digoxin 0.125 MG TAB PO SCH (08:18)
[2020-09-06] MEDS: Aspirin 81 mg Enteric Coated Tablet PO SCH (08:18)
[2020-09-06] MEDS: Carbidopa/Levodopa 25-250 mg Tablet PO SCH (08:18)
[2020-09-06] MEDS ORDERED: Vancomycin HCl 1.25 GM in Sodium Chloride 0.9% 250 ML 250 ML IVPB SCH (09:00)
--- NOTE | 2020-09-06 11:08 | DIS ---
DATE OF ADMISSION: 09/04/2020 DATE OF DISCHARGE: 09/06/2020 DISCHARGE DIAGNOSES: 1. Sepsis secondary to urinary tract infection, present on admission, resolved. 2. Escherichia coli urinary tract infection, urine culture sensitivities show pansensitive. 3. Acute metabolic encephalopathy secondary to sepsis secondary to urinary tract infection, resolved. Mental status back to baseline per family. 4. Acute kidney injury on chronic kidney disease stage 2, resolved. 5. Advanced Parkinson disease. 6. Chronic dysphagia. 7. Hypertension. 8. Chronic atrial fibrillation. CONSULTATIONS: None. PROCEDURE PERFORMED: None. LABORATORY DATA AND IMAGING STUDIES: WBC 12.6, hemoglobin 11.5, hematocrit 34.3, platelets 182. Chemistry; sodium 137, potassium 3.9, chloride is 111, carbon dioxide 22, BUN 23, creatinine 0.96. AST and ALT within normal limits. T bilirubin 1.5, albumin 2.7. Urine cultures on 09/04/2020 positive for Escherichia coli pansensitive. HISTORY OF PRESENT ILLNESS: The patient is an unfortunate 85-year-old gentleman, who has significant past medical historyof advanced Parkinson disease, wheelchair-bound for chronic debility, chronic atrial fibrillation, history of CVA with residual left-sided deficit and dysphagia, hypertension, history of congestive heart failure, who presented to outside facilities ER with generalized weakness for the last 24 hours. Initial workup in the ED found to have positive for urinary tract infection. He was given IV fluid hydration as well as broad-spectrum antibiotics. He was subsequently transferred to [facility] in [place] for further management. The patient responded well with therapy. His COVID PCR was negative. His electrolytes are corrected. Blood cultures remain negative. Urine culture positive for Escherichia coli, is showing that is pansensitive. The patient has been treated with vancomycin and Rocephin empirically. At this time, he is back to his baseline per his daughter. The patient would like to go home. He will be discharged home with 5 more days of Levaquin. DISPOSITION: Home with family. ACTIVITY: As tolerated. DIET: Regular diet. FOLLOWUP CARE: The patient to follow up with his PCP in 1-2 weeks. PHYSICAL EXAMINATION: VITAL SIGNS: Temperature is 98.8, pulse 91, respiratory rate 16, he is saturating 96% on room air, blood pressure 137/90. GENERAL APPEARANCE: The patient is comfortable. He is not in acute distress. HEENT: Normocephalic, atraumatic. Mucous membranes moist. NECK: Supple. No lymphadenopathy. No JVD. CARDIOVASCULAR: Irregularly irregular. S1, S2 noted. ABDOMEN: Soft, nontender, nondistended. EXTREMITIES: No edema. Generalized weakness. PSYCHIATRIC: The patient is alert and oriented x3. NEUROLOGIC: No new deficits. The patient had a chronic left hemiparesis noted. DISCHARGE MEDICATION: 1. Lipitor 20 mg p.o. daily. 2. Carbidopa/levodopa 25-250 mg tablet, take one tablet q.i.d. 3. Lopressor 12.5 mg p.o. at bedtime. 4. Digoxin 125 mcg p.o. daily. 5. Aspirin 81 mg p.o. daily. 6. Tylenol Regular Strength 650 mg q.4 p.r.n. for pain. New prescription: 1. Levaquin 5 mg p.o. daily for 5 days. Thank you for allowing us to participate in this patient's care. DISCHARGE TIME SPENT: 35 minutes. Job ID: [id number]
== END 2020-09-06 11:50 | disposition home or self-care (01) | DRG 871 ==
LOC: 2NO 15:48
PROVIDERS: ADMIT Internal Medicine; ATTEND Internal Medicine
DX: A41.51 Sepsis due to Escherichia coli [E. coli] (principal); G93.41 Metabolic encephalopathy; N39.0 Urinary tract infection, site not specified; N17.9 Acute kidney failure, unspecified; I48.20 Chronic atrial fibrillation, unspecified; Z20.828 Contact with and (suspected) exposure to other viral communicable diseases; N18.2 Chronic kidney disease, stage 2 (mild); G20 Parkinson's disease; R13.10 Dysphagia, unspecified; I12.9 Hypertensive chronic kidney disease with stage 1 through stage 4 chronic kidney disease, or unspecified chronic kidney disease; Z86.73 Personal history of transient ischemic attack (TIA), and cerebral infarction without residual deficits; Z79.82 Long term (current) use of aspirin
CPT/HCPCS: 36415; 80053; 83605; 85025; 87635; 90471; 90662; G0008; J0696; J3370; J3490; J7050; U0003

== ENCOUNTER 2021-07-01 13:52 | Emergency (ER) | payer MEDICARE, BC ==
[2021-07-01] MEDS ORDERED: Aspirin Chewable 81 MG TAB ONE (16:18)
[2021-07-01 16:43] LABS: #Basophils 0.1 thou/uL (0.0-0.2); #Eosinphils 0.2 thou/uL (0.0-0.7); #Lymphocytes 2.3 thou/uL (1.20-3.40); #Monocytes 0.7 thou/uL (0.11-0.59); #Neutrophils 5.6 thou/uL (1.40-6.50); %Basophils 1.2 % (0.0-1.0); %Eosinophils 2.5 % (0.0-10.0); %Lymphocytes 25.6 % (21.0-51.0); %Monocytes 7.4 % (0.0-10.0); %Neutrophils 63.4 % (42.0-75.0); Hemoglobin 14.5 g/dL (14.0-18.0); Mean Corpuscular HGB CONC 32.6 g/dL (32.0-36.0); Mean Corpuscular Hemoglobin 32.9 pg (27.0-31.0); Mean Platelet Volume 6.8 fL (7.4-10.4); Platelet Count 279 thou/uL (130-400); RBC Distribution Width 12.4 % (11.5-14.5); White Blood Cell (WBC) Count 8.9 thou/uL (4.8-10.8)
[2021-07-01 17:06] LABS: ALT (SGPT) Less than 7 U/L (8-55); AST (SGOT) 20 U/L (5-34); Albumin 4.1 g/dL (3.4-4.8); Alkaline Phosphatase 62 U/L (40-110); Anion Gap 14 mmol/L (10-20); BUN (Urea Nitrogen) 27 mg/dL (8.4-25.7); Bilirubin, Total 1.5 mg/dL (0.2-1.2); Calc. Creatinine Clearance 0 mL/min (70-130); Calcium 9.5 mg/dL (7.8-10.44); Carbon Dioxide 24 mmol/L (23-31); Chloride 104 mmol/L (98-107); Globulin 3.4 g/dL (2.4-3.5); Glucose 111 mg/dL (83-110); Potassium 4.2 mmol/L (3.5-5.1); Protein, Total 7.5 g/dL (5.8-8.1); Sodium 138 mmol/L (136-145)
[2021-07-01 19:44] LABS: Bacteria/HPF None Seen HPF (None Seen); Bilirubin Negative (Negative); Blood, Urine 1+ (Negative); Clarity Extra Turbid (Clear); Glucose, Urine (Dipstick) Normal (Negative); Ketone, Urine Trace mg/dL (Negative); Leukocyte 500 Leu/uL (Negative); Nitrite Negative (Negative); Protein, Urine (Dipstick) 100 mg/dL (Neg-Trace); Specific Gravity, Urine 1.018 (1.002-1.036); Squamous Epithelial None Seen HPF (0-3); Urobilinogen Normal mg/dL (Less than 2); WBC/HPF Greater than 50 HPF (0-3)
[2021-07-01] MEDS ORDERED: cefTRIAXone\\ROCEPHIN 1 GM VIAL ONE (20:12)
== END 2021-07-01 21:09 | disposition home or self-care (01) ==
LOC: ERS 13:52
DX: N39.0 Urinary tract infection, site not specified (principal); E78.5 Hyperlipidemia, unspecified; I11.0 Hypertensive heart disease with heart failure; I50.9 Heart failure, unspecified; I48.91 Unspecified atrial fibrillation; Z79.82 Long term (current) use of aspirin; Z79.899 Other long term (current) drug therapy
CPT/HCPCS: 36415; 51701; 70450; 71045; 80053; 81003; 81015; 83880; 84484; 85025; 87040; 87086; 87149; 93005; 96365; J0696